=== PATIENT | female | born 1990 | race Caucasian/White ===

== ENCOUNTER 2018-05-12 12:38 | Outpatient (REF) | payer MEDICAID, SELFPAY ==
[2018-05-13 14:45] LABS: Chlamydia Result Negative; GC Result Negative; Specimen Description URINE
== END 2018-05-12 12:58 ==
LOC: LBN 12:38
PROVIDERS: PCP Nurse Practitioner Family; Visit Provider Nurse Practitioner Women's Health
DX: Z11.3 Encounter for screening for infections with a predominantly sexual mode of transmission (principal)
CPT/HCPCS: 87491; 87591

== ENCOUNTER 2018-10-31 20:58 | Emergency (ER) | payer MEDICAID, SELFPAY ==
[2018-10-31] VITALS (7 sets, daily range): BP systolic 88–111; BP diastolic 43–76; PULSE 65–84; RESP 28; TEMP 37.2; O2SAT 98–100
--- NOTE | 2018-10-31 21:39 | ED.GENADUL_ITS ---
Discharge Plan Disposition Patient Disposition: HOME Discharge Details Chief Complaint: Abd Prob Clinical Impression: Abdominal pain, right upper quadrant, Anemia, Biliary colic Primary Care Provider: Christiana Mosher ED Provider: [place] Marc Home Meds and New Rx's Prescriptions: New famotidine [Pepcid] 20 mg tablet 20 mg PO BID 42 Days Qty: 84 RF: 0 Continued Nexplanon 68 mg implant 1 implant SBD ONCE Qty: 1 RF: 0 Complete 1 EACH tablet 1 ea PO DAILY RF: 0 Fusion 1 EACH capsule 1 ea PO DAILY RF: 0 Discharge Instructions Instructions: Biliary Colic (ED), Abdominal Pain (ED), Anemia (ED) Additional Instructions: It is recommended that you have an outpatient right upper quadrant ultrasound to continue workup of abdominal pain. Please follow-up with your primary care physician. Your blood test revealed that you are anemic today. You should have additional outpatient diagnostic work-up to determine cause. Return to the ER for any worsening or new concerning symptoms. Referrals: Christiana Mosher [Primary Care Provider] - Medical Decision Making 21:35 --27-year-old female with prior remote bariatric surgery here with severe epigastric abdominal pain. Tender in her epigastric and right upper quadrant. Suspect biliary colic. Pain is improving now. Consider gastritis. Plan to treat with Pepcid IV. LR 1L bolus. Plan to obtain LFTs and lipase. -- Patient reassessed and pain resolved. -- Bedside POC RUQ abdominal ultrasound performed by me: postive gallstone and sludge, no pericholecystic fluid, CBD not visualized 11:52 -- Labs reviewed: anemia noted, decreased from 1 year ago. LFTs nl. Lipase nl. Repeat abdominal exam continues to demonstrate no tenderness or peritoneal findings. Disposition decision was made weighing the risks and benefits of hospitalization versus outpatient treatment, the risk for further decompensation, and the patient's wishes. The patient was stable and requested discharge. Prior to discharge, my usual and customary return precautions were reviewed with the patient - this included follow-up instructions and reason to return to the emergency department if condition worsens, does not improve as expected, or other new concerns arise. Plan for outpatient RUQ ultrasound. If negative for stone, consider ulcer. Plan for follow-up with PCP. [facility] General Mode of arrival: ambulatory . Date/Time Provider Initiated Documentation: 10/31/18 21:09 . Limitations to Documentation: no limitations . Information obtained by: patient . HPI Narrative: 27-year-old female presents with chief complaint of abdominal pain. Patient notes pain in her epigastric and right upper abdomen that started suddenly this evening just prior to arrival when starting to eat a hot dog. Pain has been severe at times. Pain is sharp. Pain worse with deep inspiration. Prior to onset of pain she was feeling well today. No associated nausea or vomiting. No shortness of breath. Related Data Home Medications Medication Instructions Recorded Confirmed Complete 1 ea PO DAILY 04/13/17 10/31/18 Fusion 1 ea PO DAILY 06/24/17 10/31/18 etonogestrel 68 mg subdermal 1 implant SBD ONCE #1 each 05/12/18 10/31/18 implant famotidine [Pepcid] 20 mg PO BID 42 Days #84 tab 10/31/18 Previous Rx's Medication Instructions Recorded etonogestrel 68 mg subdermal 1 implant SBD ONCE #1 each 05/12/18 implant famotidine [Pepcid] 20 mg PO BID 42 Days #84 tab 10/31/18 Allergies Allergy/AdvReac Type Severity Reaction Status Date / Time No Known Allergies Allergy Unverified 06/09/18 08:50 General Stated Complaint: Abd Prob YUSUF: 3 Review of Systems Review of Systems All systems reviewed & are unremarkable except as noted in HPI and below Cardiovascular Denies dyspnea Respiratory Denies dyspnea Gastrointestinal Reports as per HPI, Reports abdominal pain, Denies melena, Denies hematochezia, Denies nausea and Denies hematemesis PFSH Medical History Hx of bariatric surgery Hx of obesity Surgical History bariatric surgery (~2014) Family History Mother Diabetes Father Heart disease Social History Smoking/Tobacco Use Status: Never Alcohol Intake: never Drug use: Never Substance use type: does not use Do you feel safe at home: Yes Do you feel safe in your relationship?: Yes Female Reproductive History Menstrual control method: implanted (Nexplanon inserted by Micha Trujillo NP [id number] EXP=09/2020) History History 1 Para 1 Hx # Term Pregnancies Multiple births Hx # Pregnancies Ectopic pregnancies AB induced Hx Number of Living Children AB spontaneous Exam Const General: cooperative and no acute distress HENMT Head: normocephalic Mouth: moist mucous membranes Eyes Conjunctivae: normal conjunctivae Sclera: normal sclerae Neck Neck: trachea midline Resp Auscultation: clear to auscultation bilaterally, no rales, no rhonchi and no wheezes Cardio Jugular venous pressure: no JVD Rate: regular rate and not tachycardic Rhythm: regular rhythm GI Palpation: soft, not firm, no guarding, no masses, not rigid and tender in the epigastrum Auscultation: normal bowel sounds Skin General skin exam: no rashes or lesions noted Neuro General: alert, awake and tone normal Extrem General: no edema Psych Appearance: grossly normal Course Vital Signs Temperature 37.2 C 10/31/18 21:04 Pulse 84 10/31/18 21:04 Respiratory Rate 28 H 10/31/18 21:04 Blood Pressure 111/76 10/31/18 21:04 Pulse Oximetry 100 10/31/18 21:04 Temperature 37.2 C 10/31/18 21:04 Temperature Source Tympanic 10/31/18 21:04 Pulse 84 10/31/18 21:04 Respiratory Rate 28 H 10/31/18 21:04 Blood Pressure 111/76 10/31/18 21:04 Blood Pressure Position Left Lateral 10/31/18 21:04 Pulse Oximetry 100 10/31/18 21:04 Oxygen Delivery Method Room Air 10/31/18 21:04 Oxygen Flow Rate 0 10/31/18 21:04 Pain Level 8 10/31/18 21:04
[2018-10-31 22:02] LABS: Abs Immature Grans 0.01 k/cumm (0.0-0.09); Absolute Basophil Count 0.01 k/cumm (0.0-0.2); Absolute Eosinophil Count 0.09 k/cumm (0.0-0.7); Absolute Lymphocyte Count 2.13 k/cumm (1.2-3.4); Absolute Monocyte Count 0.52 k/cumm (0.11-0.7); Absolute Neutrophil Count 2.67 k/cumm (1.2-6.7); Basophils % 0.2; Eosinophils % 1.7; HCT 29.8 % (36.0-46.0); HGB 9.4 g/dL (12.0-15.5); Immature Grans % 0.2; Lymphocytes % 39.2; Mean Corp. HGB Concentration 31.5 g/dL (32.0-36.0); Mean Corpuscular Hemoglobin 23.7 pg (27.0-33.0); Mean Corpuscular Volume 75.3 fL (80-95); Mean Platelet Volume 12.3 fL (8.0-11.0); Monocytes % 9.6; Neutrophils % 49.1; Platelet Count 192 x1000/uL (130-400); RBC 3.96 m/cumm (4.00-5.20); RBC Distribution Width 15.7 % (11.7-14.6); White Blood Cell Count 5.43 k/cumm (4.4-10.8)
[2018-10-31 22:46] LABS: ALT 25 U/L (12-78); AST 35 U/L (15-37); Albumin 3.2 g/dL (3.4-5.0); Alkaline Phosphatase 24 U/L (46-116); Anion Gap 6.8 mmol/L (3-11); BUN 11 mg/dL (7-18); Bilirubin, Total 0.2 mg/dL (0.2-1.0); CO2 26.2 mmol/L (21.0-32.0); CREATININE 0.69 mg/dL (0.55-1.02); Calcium 8.6 mg/dL (8.5-10.1); Chloride 104 mmol/L (98-107); Glucose 95 mg/dL (70-100); Lipase 162 U/L (73-393); Potassium 3.6 mmol/L (3.5-5.1); Sodium 137 mmol/L (136-145); Total Protein 6.8 g/dL (6.4-8.2)
--- NOTE | 2018-11-01 00:08 | NUR.NOTE ---
Nursing Note: Pt bled through bandage from IV removal and passed out. Pt has hx of passing out when she sees her own blood. Got pt laying down pressure to IV site and cleaned up the blood. Pt is now alert and oriented sitting up again. Pt ready to go home when MD sees her.
[2018-11-01 00:28] VITALS: BP 93/43; PULSE 67; RESP 28; O2SAT 98
== END 2018-11-01 00:30 | disposition home or self-care (01) ==
PROVIDERS: Emergency Provider Student in an Organized Health Care Education/Training Program; PCP Nurse Practitioner Family
DX: R10.11 Right upper quadrant pain (principal); R10.13 Epigastric pain; K80.20 Calculus of gallbladder without cholecystitis without obstruction; D50.9 Iron deficiency anemia, unspecified; Z98.84 Bariatric surgery status
CPT/HCPCS: 36415; 80053; 83690; 99283; 85025

== ENCOUNTER 2018-11-04 01:33 | Outpatient (CLI) | payer MEDICAID, SELFPAY ==
--- NOTE | 2018-11-04 09:24 | DI.US_ITS ---
SYMPTOM/DIAGNOSIS: RUQ ABD PAIN ABDOMEN ULTRASOUND: The aorta is unremarkable. The vena cava is intact. The liver is enlarged with a maximum diameter of 17 cm. There are a number of small regions of reflectivity on the dependent gallbladder wall consistent with a number of very small gallstones. There is no evidence of ductal dilatation. The pancreas is normal. The spleen is somewhat enlarged with a maximum diameter of 11.9 cm. The kidneys are unremarkable. There is no evidence of free fluid. SUMMARY: No evidence of cholecystitis. Cholelithiasis is demonstrated.
== END 2018-11-04 01:53 ==
PROVIDERS: PCP Nurse Practitioner Family; Visit Provider Student in an Organized Health Care Education/Training Program
DX: R10.11 Right upper quadrant pain (principal); K80.20 Calculus of gallbladder without cholecystitis without obstruction; R16.0 Hepatomegaly, not elsewhere classified
CPT/HCPCS: 76700

== ENCOUNTER 2018-11-04 09:29 | Emergency (ER) | payer MEDICAID, SELFPAY ==
[2018-11-04 09:33] VITALS: BP 122/74; PULSE 68; RESP 12; TEMP 36.6; O2SAT 100
--- NOTE | 2018-11-04 09:55 | W.ED.GENAD ---
Discharge Plan Disposition Patient Disposition: HOME Condition: Fair Discharge Details Chief Complaint: Recheck Clinical Impression: Cholelithiasis Primary Care Provider: Christiana Mosher ED Provider: Ara Cruz Home Meds and New Rx's Prescriptions: Continued Nexplanon 68 mg implant 1 implant SBD ONCE Qty: 1 RF: 0 Complete 1 EACH tablet 1 ea PO DAILY RF: 0 Fusion 1 EACH capsule 1 ea PO DAILY RF: 0 famotidine [Pepcid] 20 mg tablet 20 mg PO BID 42 Days Qty: 84 RF: 0 Discharge Instructions Instructions: Gallstones (ED) Additional Instructions: Encourage hydration. Tylenol and ibuprofen as needed for discomfort. Please avoid fatty foods. If you develop fever/chills, increased pain, constant pain, inability stay hydrated or the new/worsening symptoms please seek care urgently once again. Ultrasound showed gallstones. You will need follow-up with general surgery, home care chaplain will contact you to discuss follow-up appointment. Referrals: Christiana Mosher [Primary Care Provider] - Discharge Data Discharge Date/Time-TO BE ENTERED AT DEPARTURE: 11/04/18 10:17 Medical Decision Making Patient is a 27-year-old female presenting today for follow-up of ultrasound. Discussed findings with the radiologist who advised cholelithiasis with no evidence of acute cholecystitis. Discussed with the patient. She is currently asymptomatic, drinking coffee. She appears nontoxic. Some mild discomfort in right upper quadrant with palpation but negative Dotson sign. Advised him to follow-up with general surgery. She was given strict return precautions. Have asked her home care chaplain help facilitate follow-up appointment. All of her questions and concerns were addressed and she is agreement with plan. Discussed that she should avoid fatty foods. HPI General Mode of arrival: ambulatory. Date/Time Provider Initiated Documentation: 11/04/18 09:31. Limitations to Documentation: no limitations. Information obtained by: patient and RN notes reviewed. HPI Narrative: Patient presents for recheck after outpatient US. Patient had RUQ US with concern for cholelithiasis. She reports one short episode of pain after eating hotdog after her evaluation a few days ago. That episode lasted 20 mins and spontaneously resolved. No pain now. No change in appetite. No fevers/chills. Surgical hx significant for bariatric surgery and . Related Data Home Medications Medication Instructions Recorded Confirmed Complete 1 ea PO DAILY 04/13/17 11/04/18 Fusion 1 ea PO DAILY 06/24/17 11/04/18 etonogestrel 68 mg subdermal 1 implant SBD ONCE #1 each 05/12/18 11/04/18 implant famotidine [Pepcid] 20 mg PO BID 42 Days #84 tab 10/31/18 11/04/18 Previous Rx's Medication Instructions Recorded etonogestrel 68 mg subdermal 1 implant SBD ONCE #1 each 05/12/18 implant famotidine [Pepcid] 20 mg PO BID 42 Days #84 tab 10/31/18 Allergies Allergy/AdvReac Type Severity Reaction Status Date / Time No Known Allergies Allergy Unverified 11/04/18 09:35 General Stated Complaint: Recheck YUSUF: 4 Review of Systems Constitutional Reports as per HPI, Denies chills, Denies fatigue, Denies fever(s) and Denies headache(s) ENT Denies headache(s) Cardiovascular Reports as per HPI, Denies chest pain and Denies dyspnea Respiratory Reports as per HPI, Denies cough and Denies dyspnea Gastrointestinal Reports as per HPI and Denies change in stool character Genitourinary Reports system reviewed and no additional complaints, except as docu (no changein urinary habits) Musculoskeletal Reports as per HPI and Denies back pain Integumentary/Breasts Reports as per HPI and Denies rash Neurologic Reports as per HPI and Denies headache(s) Endocrine Denies fatigue PFSH Medical History Hx of bariatric surgery Hx of obesity Surgical History bariatric surgery (~2014) Social History Smoking/Tobacco Use Status: Never Alcohol Intake: never Drug use: Never Substance use type: does not use Do you feel safe at home: Yes Do you feel safe in your relationship?: Yes Female Reproductive History Menstrual control method: implanted (Nexplanon inserted by Micha Trujillo NP QQG=[id number] EXP=09/2020) History History 1 Para 1 Hx # Term Pregnancies Multiple births Hx # Pregnancies Ectopic pregnancies AB induced Hx Number of Living Children AB spontaneous Exam Const General: cooperative, healthy appearing, comfortable, no acute distress and well developed Nutritional Appearance: average body habitus and well nourished Orientation: alert and awake HENVA Head: normal to inspection Mouth: moist mucous membranes Resp Effort & Inspection: normal respiratory effort, able to speak in complete sentences and no respiratory distress Auscultation: clear to auscultation bilaterally, no rales, no rhonchi and no wheezes Cardio Rate: regular rate Rhythm: regular rhythm Heart Sounds: S1 normal and S2 normal GI Inspection: normal to inspection, no edema, non-distended, no large pannus, no visible herniation and no visible pulsation Palpation: soft, no hepatosplenomegaly, not firm, no guarding and tender in the RUQ; Dotson's sign negative Percussion: normal to percussion Auscultation: normal bowel sounds Back/Spine/Pelvis Back: no CVA tenderness Skin General skin exam: no rashes or lesions noted Trauma: no lacerations or abrasions Neuro General: alert and awake Cognition: normal cognition Speech: speech normal Gait: normal gait Psych Appearance: grossly normal and well kempt Mental Status: mental status grossly normal Speech and Movement: speech and movement normal Course Vital Signs Temperature 36.6 C 11/04/18 09:33 Pulse 68 11/04/18 09:33 Respiratory Rate 12 11/04/18 09:33 Blood Pressure 122/74 11/04/18 09:33 Pulse Oximetry 100 11/04/18 09:33 Temperature 36.6 C 11/04/18 09:33 Temperature Source Temporal Artery Scan 11/04/18 09:33 Pulse 68 11/04/18 09:33 Respiratory Rate 12 11/04/18 09:33 Respiratory Effort Non-Labored 11/04/18 09:35 Blood Pressure 122/74 11/04/18 09:33 Pulse Oximetry 100 11/04/18 09:33 Oxygen Delivery Method Room Air 11/04/18 09:33 Oxygen Flow Rate 0 11/04/18 09:33 Pain Level 0 11/04/18 09:33
--- NOTE | 2018-11-04 10:12 | ED.GENADUL_ITS ---
Discharge Plan Disposition Patient Disposition: HOME Condition: Fair Discharge Details Chief Complaint: Recheck Clinical Impression: Cholelithiasis Primary Care Provider: Christiana Mosher ED Provider: Ara Cruz Home Meds and New Rx's Prescriptions: Continued Nexplanon 68 mg implant 1 implant SBD ONCE Qty: 1 RF: 0 Complete 1 EACH tablet 1 ea PO DAILY RF: 0 Fusion 1 EACH capsule 1 ea PO DAILY RF: 0 famotidine [Pepcid] 20 mg tablet 20 mg PO BID 42 Days Qty: 84 RF: 0 Discharge Instructions Instructions: Gallstones (ED) Additional Instructions: Encourage hydration. Tylenol and ibuprofen as needed for discomfort. Please avoid fatty foods. If you develop fever/chills, increased pain, constant pain, inability stay hydrated or the new/worsening symptoms please seek care urgently once again. Ultrasound showed gallstones. You will need follow-up with general surgery, resident care aid will contact you to discuss follow-up appointment. Referrals: Christiana Mosher [Primary Care Provider] - Discharge Data Discharge Date/Time-TO BE ENTERED AT DEPARTURE: 11/04/18 10:17 Medical Decision Making Patient is a 27-year-old female presenting today for follow-up of ultrasound. Discussed findings with the radiologist who advised cholelithiasis with no evidence of acute cholecystitis. Discussed with the patient. She is currently asymptomatic, drinking coffee. She appears nontoxic. Some mild discomfort in right upper quadrant with palpation but negative Dotson sign. Advised him to follow-up with general surgery. She was given strict return precautions. Have asked her resident care aid help facilitate follow-up appointment. All of her questions and concerns were addressed and she is agreement with plan. Discussed that she should avoid fatty foods. HPI General Mode of arrival: ambulatory . Date/Time Provider Initiated Documentation: 11/04/18 09:31 . Limitations to Documentation: no limitations . Information obtained by: patient and RN notes reviewed . HPI Narrative: Patient presents for recheck after outpatient US. Patient had RUQ US with concern for cholelithiasis. She reports one short episode of pain after eating hotdog after her evaluation a few days ago. That episode lasted 20 mins and spontaneously resolved. No pain now. No change in appetite. No fevers/chills. Surgical hx significant for bariatric surgery and . Related Data Home Medications Medication Instructions Recorded Confirmed Complete 1 ea PO DAILY 04/13/17 11/04/18 Fusion 1 ea PO DAILY 06/24/17 11/04/18 etonogestrel 68 mg subdermal 1 implant SBD ONCE #1 each 05/12/18 11/04/18 implant famotidine [Pepcid] 20 mg PO BID 42 Days #84 tab 10/31/18 11/04/18 Previous Rx's Medication Instructions Recorded etonogestrel 68 mg subdermal 1 implant SBD ONCE #1 each 05/12/18 implant famotidine [Pepcid] 20 mg PO BID 42 Days #84 tab 10/31/18 Allergies Allergy/AdvReac Type Severity Reaction Status Date / Time No Known Allergies Allergy Unverified 11/04/18 09:35 General Stated Complaint: Recheck YUSUF: 4 Review of Systems Constitutional Reports as per HPI, Denies chills, Denies fatigue, Denies fever(s) and Denies he adache(s) ENT Denies headache(s) Cardiovascular Reports as per HPI, Denies chest pain and Denies dyspnea Respiratory Reports as per HPI, Denies cough and Denies dyspnea Gastrointestinal Reports as per HPI and Denies change in stool character Genitourinary Reports system reviewed and no additional complaints, except as docu (no changein urinary habits) Musculoskeletal Reports as per HPI and Denies back pain Integumentary/Breasts Reports as per HPI and Denies rash Neurologic Reports as per HPI and Denies headache(s) Endocrine Denies fatigue PFSH Medical History Hx of bariatric surgery Hx of obesity Surgical History bariatric surgery (~2014) Social History Smoking/Tobacco Use Status: Never Alcohol Intake: never Drug use: Never Substance use type: does not use Do you feel safe at home: Yes Do you feel safe in your relationship?: Yes Female Reproductive History Menstrual control method: implanted (Nexplanon inserted by Micha Trujillo NP HUN=[id number] EXP=09/2020) History History 1 Para 1 Hx # Term Pregnancies Multiple births Hx # Pregnancies Ectopic pregnancies AB induced Hx Number of Living Children AB spontaneous Exam Const General: cooperative, healthy appearing, comfortable, no acute distress and well developed Nutritional Appearance: average body habitus and well nourished Orientation: alert and awake HENAZ Head: normal to inspection Mouth: moist mucous membranes Resp Effort & Inspection: normal respiratory effort, able to speak in complete sentences and no respiratory distress Auscultation: clear to auscultation bilaterally, no rales, no rhonchi and no wheezes Cardio Rate: regular rate Rhythm: regular rhythm Heart Sounds: S1 normal and S2 normal GI Inspection: normal to inspection, no edema, non-distended, no large pannus, no visible herniation and no visible pulsation Palpation: soft, no hepatosplenomegaly, not firm, no guarding and tender in the RUQ; Dotson's sign negative Percussion: normal to percussion Auscultation: normal bowel sounds Back/Spine/Pelvis Back: no CVA tenderness Skin General skin exam: no rashes or lesions noted Trauma: no lacerations or abrasions Neuro General: alert and awake Cognition: normal cognition Speech: speech normal Gait: normal gait Psych Appearance: grossly normal and well kempt Mental Status: mental status grossly normal Speech and Movement: speech and movement normal Course Vital Signs Temperature 36.6 C 11/04/18 09:33 Pulse 68 11/04/18 09:33 Respiratory Rate 12 11/04/18 09:33 Blood Pressure 122/74 11/04/18 09:33 Pulse Oximetry 100 11/04/18 09:33 Temperature 36.6 C 11/04/18 09:33 Temperature Source Temporal Artery Scan 11/04/18 09:33 Pulse 68 11/04/18 09:33 Respiratory Rate 12 11/04/18 09:33 Respiratory Effort Non-Labored 11/04/18 09:35 Blood Pressure 122/74 11/04/18 09:33 Pulse Oximetry 100 11/04/18 09:33 Oxygen Delivery Method Room Air 11/04/18 09:33 Oxygen Flow Rate 0 11/04/18 09:33 Pain Level 0 11/04/18 09:33
[2018-11-04 10:17] VITALS: BP 122/74; PULSE 68; RESP 12; TEMP 36.6; O2SAT 100
--- NOTE | 2018-11-04 10:53 | PDOC.ERCMPRO ---
Care Management Progress Note 11/04-Ara SEGOVIA requested assistance with a general surgery f/u for cholelithiasis. Referral faxed to [facility]. [facility], patient has appt 11/08 w/Dr. Salazar.
--- NOTE | 2018-11-04 10:59 | CMPROGNOTE_ITS ---
Care Management Progress Note 11/04-Ara SEGOVIA requested assistance with a general surgery f/u for cholelithiasis. Referral faxed to [facility]. [facility] faxed back, patient has appt 11/08 w/Dr. Salazar.
== END 2018-11-04 10:17 | disposition home or self-care (01) ==
PROVIDERS: Emergency Provider Physician Assistant; PCP Nurse Practitioner Family
DX: K80.20 Calculus of gallbladder without cholecystitis without obstruction (principal)
CPT/HCPCS: 99281

== ENCOUNTER 2019-04-26 15:09 | Outpatient (REF) | payer MEDICAID, SELFPAY | END 2019-04-26 15:29 | LOC: NCHCO 15:09 | PROVIDERS: PCP Nurse Practitioner Family; Visit Provider Nurse Practitioner Family | DX: F41.8 Other specified anxiety disorders (principal) | CPT/HCPCS: 84443 ==

== ENCOUNTER 2019-11-21 13:19 | Outpatient (REF) | payer MEDICAID, SELFPAY ==
[2019-11-21 22:27] LABS: Abs Immature Grans 0.05 k/cumm (0.0-0.09); Absolute Basophil Count 0.01 k/cumm (0.0-0.2); Absolute Eosinophil Count 0.12 k/cumm (0.0-0.7); Absolute Monocyte Count 0.79 k/cumm (0.11-0.7); Absolute Neutrophil Count 5.36 k/cumm (1.2-6.7); Basophils % 0.1; Eosinophils % 1.5; HCT 37.4 % (36.0-46.0); HGB 12.1 g/dL (12.0-15.5); Immature Grans % 0.6 %; Lymphocytes % 21.2; Mean Corp. HGB Concentration 32.4 g/dL (32.0-36.0); Mean Corpuscular Hemoglobin 28.7 pg (27.0-33.0); Mean Corpuscular Volume 88.8 fL (80-95); Mean Platelet Volume 11.7 fL (8.0-11.0); Monocytes % 9.8; Neutrophils % 66.8; Platelet Count 262 x1000/uL (130-400); RBC 4.21 m/cumm (4.00-5.20); White Blood Cell Count 8.03 k/cumm (4.4-10.8)
[2019-11-21 23:00] LABS: Anion Gap 9.4 mmol/L (3-11); BUN 8 mg/dL (7-18); CO2 26.6 mmol/L (21.0-32.0); CREATININE 0.81 mg/dL (0.55-1.02); Calcium 8.3 mg/dL (8.5-10.1); Chloride 103 mmol/L (98-107); Glucose 91 mg/dL (74-106); Potassium 3.3 mmol/L (3.5-5.1); Sodium 139 mmol/L (136-145)
== END 2019-11-21 13:39 ==
LOC: NCHCN 13:19
PROVIDERS: PCP Nurse Practitioner Family
DX: R53.83 Other fatigue (principal)
CPT/HCPCS: 80048; 85025

== ENCOUNTER 2019-12-16 07:44 | Outpatient (CLI) | payer MEDICAID, SELFPAY ==
[2019-12-21 19:18] LABS: SARS-CoV-2 RNA Undetected (Undetected)
== END 2019-12-16 08:04 ==
PROVIDERS: PCP Nurse Practitioner Family; Visit Provider Nurse Practitioner Family
DX: Z11.59 Encounter for screening for other viral diseases (principal)
CPT/HCPCS: U0003

== ENCOUNTER 2020-02-27 10:43 | Outpatient (REF) | payer MEDICAID, SELFPAY ==
[2020-02-27 20:46] LABS: HCT 42.3 % (36.0-46.0); HGB 13.9 g/dL (11.2-15.7); MCH 28.6 pg (27.0-33.0); MCHC 32.9 % (32.0-36.0); MPV 11.7 fL (8.0-11.0); Platelet Count 163 10^3/uL (130-400); RBC 4.86 10^6/uL (3.93-5.22); RDW 13.3 % (11.7-14.6); RDW-SD 42.2 fL
[2020-02-27 20:59] LABS: Iron 106 ug/dL (50-170); Total Iron Binding Capacity 294 ug/dL (250-450); Transferrin Sat 36 % (15-50)
[2020-02-27 21:22] LABS: Hemoglobin A1C 4.9 % (<5.7)
[2020-02-27 22:23] LABS: ALT 21 U/L (14-59); AST 14 U/L (15-37); Albumin 4.1 g/dL (3.4-5.0); Alkaline Phosphatase 23 U/L (46-116); BUN 10 mg/dL (7-18); Bilirubin, Total 0.5 mg/dL (0.2-1.0); CREATININE 0.81 mg/dL (0.55-1.02); Chloride 104 mmol/L (98-107); Ferritin 112 ng/mL (8-252); Glucose 93 mg/dL (74-106); Potassium 4.2 mmol/L (3.5-5.1); Sodium 138 mmol/L (136-145); TSH 0.95 uIU/mL (0.36-3.74); Total Protein 7.6 g/dL (6.4-8.2); Vitamin B12 327 pg/mL (193-986)
[2020-02-27 23:35] LABS: FREE T4 1.04 ng/dL (0.76-1.46)
== END 2020-02-27 11:03 ==
LOC: NCHCN 10:43
PROVIDERS: PCP Nurse Practitioner Family; Visit Provider Internal Medicine
DX: R53.83 Other fatigue (principal); R41.3 Other amnesia; Z13.1 Encounter for screening for diabetes mellitus
CPT/HCPCS: 80053; 85027; 82607; 82728; 83036; 83540; 83550; 84439; 84443

== ENCOUNTER 2021-01-18 07:36 | Emergency (ER) | payer MEDICAID, SELFPAY ==
[2021-01-18 07:39] VITALS: BP 115/66; PULSE 77; RESP 14; TEMP 36.7; O2SAT 99
--- NOTE | 2021-01-18 07:52 | DI.RAD_ITS ---
Exam(s) XR HAND RT COMPLETE EXAM: XR HAND RT COMPLETE CLINICAL HISTORY: shut in coor door, pain/bruising. TECHNIQUE: 2D digital imaging was performed. COMPARISON: No exams were available for comparison FINDINGS: BONES: There is an acute nondisplaced fracture of the lateral aspect of the terminal tuft of the righ t 4th finger. There is a lucency seen through the lateral aspect of the terminal tuft of the middle finger which may represent overlying shadow versus a non displaced fracture clinical correlation is r ecommended. No bony destructive lesion is seen. JOINTS: No dislocation present. SOFT TISSUE: Normal. IMPRESSION: 1. Nondisplaced fracture of the lateral aspect of the terminal tuft of the right ring finger. 2. Nondisplaced fracture versus artifact involving the terminal tuft of the distal phalanx of the rig ht middle finger. 3. Results of this exam have been verbally communicated with provider. DATA REPOSITORY: RADIATION DOSE DELIVERED:
[2021-01-18] MEDS: Cephalexin 500 MG CAP PO (08:20)
--- NOTE | 2021-01-18 08:22 | W.ED.GENAD ---
Discharge Plan Disposition Patient Disposition: HOME Condition: Good Discharge Details Clinical Impression: Fracture of phalanx of right ring finger, Closed fracture of phalanx of right middle finger Primary Care Provider: Christiana Mosher ED Provider: William Leone Home Meds and New Rx's Prescriptions: New cephalexin 500 mg capsule 500 mg PO QID 7 Days Qty: 28 RF: 0 Continued Nexplanon 68 mg implant 1 implant SBD ONCE Qty: 1 RF: 0 Complete 1 EACH tablet 1 ea PO DAILY RF: 0 Fusion 1 EACH capsule 1 ea PO DAILY RF: 0 Discharge Instructions Instructions: Finger Fracture (ED) Additional Instructions: At this time you have a few small fractures of your fingers. Unfortunately because one of the fractures is at the tip of the finger where the subungual hematoma is there is concern for potential future infection. To prevent this please take the antibiotic as directed. The antibiotic has been sent [facility] your [facility] on [facility]. Please leave the splint on for the next 1 to 2 weeks, and then gradually begin to move the fingers to make sure there is improvement or resolution of your pain. If you do still have pain please maintain splint use. If you have continued to have numbness and tingling after a week please follow-up with your PCP or patient accounts specialist for reassessment. You can take 1000 mg of Tylenol every 6 hours and 800 mg of ibuprofen every 6 hours for pain. These are the maximum doses. Please use ice frequently. Please also take a multivitamin and a calcium supplement as you heal. If you notice any worsening of your symptoms, or any new symptoms such as vomiting, diarrhea, fever, chills, shortness of breath, chest pain, numbness, weakness, or fainting , please return immediately to the emergency department for reevaluation. Please follow up with your primary care provider as soon as possible for reassessment and reevaluation. As always, it was a pleasure participating in your medical care today. Referrals: Christiana Mosher [Primary Care Provider] - Discharge Data Discharge Date/Time-TO BE ENTERED AT DEPARTURE: 01/18/21 08:34 Medical Decision Making 30-year-old female who is right-hand dominant presents today for evaluation of right middle and ring finger pain. Just prior to arrival the patient caught her fingers in the door when closing the door. She applied ice, and then came to the ER for further assessment. Pain is present in the tip of the third and fourth finger trauma as well as the proximal component of the phalanges of the third and fourth finger. Pain is worse with movement. Improved with ice. No other complaints at this time. No other modifying factors. Physical exam demonstrates tenderness at the proximal phalanxes of the third and fourth digit as well as the tips of the third and fourth digit, strength intact, sensation intact but slightly reduced at the tips. Good capillary refill. No rotational deformity. Patient able to flex and extend well otherwise. Small subungual hematoma, but patient states that the pain is mild to minimal in that area and certainly not throbbing. No indication for trephination of the nail at this time. X-ray shows evidence of small fractures at the DIP tips, as well as in the proximal phalanx. Will splint the fingers, recommend Tylenol and Motrin for pain as well as ice. We will give a prescription for Keflex for potential infection with the evidence of small distal tip fracture and subungual hematoma. Discussed red flags which to return. I have extensively reviewed the treatment plan and discharge instructions with the patient and their family. I have addressed all patient concerns at this time. The patient and family was made aware of what symptoms to monitor for that would warrant a return to the emergency department. Discussed the plan with the patient and family, they demonstrate verbal understanding and agreement with our assessment and plan at this time. The documentation in this chart was dictated using [employer] dictation software. Please excuse any dictation errors. IMPRESSION: 1. Nondisplaced fracture of the lateral aspect of the terminal tuft of the right ring finger. 2. Nondisplaced fracture versus artifact involving the terminal tuft of the distal phalanx of the right middle finger. 3. Results of this exam have been verbally communicated with provider. HPI General Date/Time Provider Initiated Documentation: 01/18/21 07:55. HPI Narrative: 30-year-old female who is right-hand dominant presents today for evaluation of right middle and ring finger pain. Just prior to arrival the patient caught her fingers in the door when closing the door. She applied ice, and then came to the ER for further assessment. Pain is present in the tip of the third and fourth finger trauma as well as the proximal component of the phalanges of the third and fourth finger. Pain is worse with movement. Improved with ice. No other complaints at this time. No other modifying factors. Related Data Home Medications Medication Instructions Recorded Confirmed Complete 1 ea PO DAILY 04/13/17 01/18/21 Fusion 1 ea PO DAILY 06/24/17 01/18/21 etonogestrel 68 mg subdermal 1 implant SBD ONCE #1 each 05/12/18 01/18/21 implant cephalexin 500 mg PO QID 7 Days #28 cap 01/18/21 Previous Rx's Medication Instructions Recorded etonogestrel 68 mg subdermal 1 implant SBD ONCE #1 each 05/12/18 implant cephalexin 500 mg PO QID 7 Days #28 cap 01/18/21 Allergies Allergy/AdvReac Type Severity Reaction Status Date / Time No Known Allergies Allergy Unverified 06/09/19 10:29 General Stated Complaint: Orthopedic YUSUF: 4 Review of Systems All systems reviewed & are unremarkable except as noted in HPI and below PFSH Medical History History of delivery SROM with at 30 weeks EGA. complicated by first trimester bleeding x2. Infant without sequela. Hx of bariatric surgery 06/2017 Prealbumin, Vit D low iron saturation low. Nl TIBC, nl ferritin. Hx of obesity 2015 BMI 45 kg/m2. 302lbs 04/2017 BMI 26.6kg/m2. 173lbs. s/p bariatric surgery [facility] [place] Nexplanon in place Placed 05/2018. Surgical History bariatric surgery (~2014) [facility] [place]. Lin en Y gastric bypass. Family History Mother Diabetes Father Heart disease Social History Smoking/Tobacco Use Status: Never Smoking risk assessment performed?: Yes Alcohol Intake: never Drug use: Never Substance use type: does not use Household members: significant other and other Details: Tory. 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 3.ENT: Atraumatic external nose and ears. Moist MM. Neck: Symmetric, trachea midline, No thyromegaly. 4.CVS: +S1/S2, No murmurs or gallops. Peripheral pulses 2+ and equal in all extremities. Brisk capillary refill in all extremities. 5.RESP: Unlabored respiratory effort. Clear to auscultation bilaterally. No wheezes rales or rhonchi 6.GI: Soft, Nontender/Nondistended, No hepatosplenomegaly. No guarding or rebound. 7.MSK: Right hand: symmetrically palpable radial and ulnar pulses. Capillary refill less than 2 seconds to all digits. Intact sensation to light touch of the radial, median and ulnar nerves demonstrated by testing in the dorsal web space of the thumb, the distal palmar aspect of the index finger, and the lateral surface of the fifth finger. 2 point discrimination i somewhat limited in the distal tips of the third and fourth digit, I would describe the two-point discrimination being present up to 6 mm, but not closer in the third and fourth digit. Intact motor function of the radial, median and ulnar nerves demonstrated by strength of extension of the isolated distal joint of the index finger, hand tile ditcher, and spreading of the 2nd through 5th digits however there is notable pain in the third and fourth digit with these movements. Flexion of the third and fourth digit demonstrates no rotational abnormality. In isolation of each joint continues to demonstrate good flexion capability although there is some pain for sure. Intact recurrent median nerve as demonstrated by ability to move thumb fully through opposition, abduction and flexion. No snuffbox tenderness. There is also evidence of a small subungual hematoma at the base of the middle finger nail. 8.Skin: Warm, Dry. No rashes or lesions. 9.Neuro: oracle adf developer II-XII grossly intact. Sensation grossly intact, no focal neurologic deficits. 10.Psych: (AAO) x3. Appropriate mood and affect Course Vital Signs Vital signs: Vital Signs Temperature 36.7 C 01/18/21 07:39 Pulse 77 01/18/21 07:39 Respiratory Rate 14 01/18/21 07:39 Blood Pressure 115/66 01/18/21 07:39 Pulse Oximetry 99 01/18/21 07:39 Temperature 36.7 C 01/18/21 07:39 Temperature Source Skin 01/18/21 07:39 Pulse 77 01/18/21 07:39 Respiratory Rate 14 01/18/21 07:39 Respiratory Effort Non-Labored 01/18/21 07:43 Blood Pressure 115/66 01/18/21 07:39 Blood Pressure Position Sitting 01/18/21 07:39 Pulse Oximetry 99 01/18/21 07:39 Oxygen Delivery Method Room Air 01/18/21 07:39 Oxygen Flow Rate 0 01/18/21 07:39
== END 2021-01-18 08:34 | disposition home or self-care (01) ==
PROVIDERS: Emergency Provider Student in an Organized Health Care Education/Training Program; PCP Nurse Practitioner Family
DX: S67.21XA Crushing injury of right hand, initial encounter (principal); S62.632A Displaced fracture of distal phalanx of right middle finger, initial encounter for closed fracture; S62.634A Displaced fracture of distal phalanx of right ring finger, initial encounter for closed fracture; W23.1XXA Caught, crushed, jammed, or pinched between stationary objects, initial encounter
CPT/HCPCS: 26750; 73130

== ENCOUNTER 2021-02-04 11:58 | Outpatient (REF) | payer MEDICAID, SELFPAY ==
[2021-02-05 17:56] LABS: COVID-19 RT-PCR UVMMC Result Negative (Negative)
== END 2021-02-04 11:59 | disposition home or self-care (01) ==
LOC: NCHCN 11:58
PROVIDERS: PCP Nurse Practitioner Family; Visit Provider Nurse Practitioner Family
DX: R05 Cough (principal); Z20.822 Contact with and (suspected) exposure to COVID-19
CPT/HCPCS: U0003

== ENCOUNTER 2021-06-29 12:56 | Emergency (ER) | payer MEDICAID, SELFPAY ==
[2021-06-29 13:03] VITALS: BP 124/78; PULSE 72; RESP 18; TEMP 36.5; O2SAT 98
--- NOTE | 2021-06-29 13:30 | DI.CT_ITS ---
Exam(s) CT HEAD CERVICAL SPINE WO EXAM: CT HEAD CERVICAL SPINE WO CLINICAL HISTORY: headache after fall, neck pain. TECHNIQUE: Imaging Protocol: Axial computed tomography images with coronal and sagittal reformatted images were created and reviewed COMPARISON: CT HEAD WITHOUT CONTRAST from 02/09/2017 FINDINGS: CT Head: Ventricles and Extra axial spaces: Normal in size and morphology for the patient's age. Hemorrhage: None. Cerebral parenchyma: Normal. Midline shift: None. Brainstem/Cerebellum: Normal. Calvarium: Normal. Visualized Paranasal sinuses/Mastoids: Clear. Soft Tissues: Unremarkable. CT Cervical Spine: Bones: No acute fracture or subluxation. There is straightening of the normal cervical lordosis which may be due to muscle spasm or patient positioning. Soft Tissues: Unremarkable. Lung Apices: Clear. IMPRESSION: 1. No acute intracranial process. 2. No acute fracture or subluxation in the cervical spine. RADIATION DOSE DELIVERED: 1,196.03mGy.cm Total DLP DATA REPOSITORY: All CT scans at this facility are submitted to the National Radiology Data Registry (NRDR) Dose Index Registry (DIR) with the [employer] (ACR). RADIATION OPTIMIZATION: All CT scans at this facility use at least one of these dose optimization te chniques: automated exposure control; mA and/or kV adjustment per patient size (includes targeted exa ms where dose is matched to clinical indication); or iterative reconstruction.
--- NOTE | 2021-06-29 13:42 | W.ED.GENAD ---
Discharge Plan Disposition Patient Disposition: HOME Condition: Stable Discharge Details Clinical Impression: Concussion Primary Care Provider: Christiana Mosher ED Provider: Pippa Lemus Home Meds and New Rx's Prescriptions: Continued Nexplanon 68 mg implant 1 implant SBD ONCE Qty: 1 RF: 0 Complete 1 EACH tablet 1 ea PO DAILY RF: 0 Fusion 1 EACH capsule 1 ea PO DAILY RF: 0 multivitamin Tablet 1 tab PO DAILY RF: 0 ferrous gluconate 225 mg (27 mg iron) tablet 225 mg PO DAILY RF: 0 bupropion HCl 100 mg tablet 100 mg PO TID RF: 0 Discharge Instructions Instructions: Concussion (ED) Additional Instructions: Take ibuprofen and Tylenol as needed for pain Keep yourself hydrated While you have lightheadedness headache, is recommended that you do not operate any heavy machinery including your vehicle Your symptoms may last anywhere from 1 weeks to a month, sometimes they can last longer, recommend repeat assessment with your primary care physician in 1 week Limit your television and phone use Please return earlier should you have any new or worsening complaints including worsening headache Referrals: Christiana Mosher [Primary Care Provider] - Discharge Data Discharge Date/Time-TO BE ENTERED AT DEPARTURE: 06/29/21 15:05 Medical Decision Making Patient appears well Ambulatory steady gait, CT cervical spine and brain does not show acute abnormality Suspect patient has a concussion, we discussed symptom and likely a course presentation We will take ibuprofen and Tylenol, limit electronic activities and any activities operating heavy machinery including her vehicle will be discontinued until her symptoms have resolved Return precautions discussed and patient expressed understanding Discharge home ambulatory with steady gait intact neurological exam Medical Records Medical records reviewed: Yes I reviewed the patient's medical records. HPI General Mode of arrival: ambulatory. Date/Time Provider Initiated Documentation: 06/29/21 13:18. Limitations to Documentation: no limitations. Information obtained by: patient. HPI Narrative: This 30-year-old female who is otherwise reportedly healthy presents with report of headache status post fall approximately 3 feet from a desktop support technician yesterday. Fell onto cement, denies no loss of consciousness. Woke up with notable headache morning which is why he presents today. Mildly nauseous, mildly lightheaded. Denies prior history of recent head injury. Denies any numbness or tingling. Was ambulatory today without issue. Denies history of coagulopathy. Denies any chance of . Related Data Home Medications Medication Instructions Recorded Confirmed Complete 1 ea PO DAILY 04/13/17 06/29/21 Fusion 1 ea PO DAILY 06/24/17 06/29/21 etonogestrel 68 mg subdermal 1 implant SBD ONCE #1 each 05/12/18 06/29/21 implant bupropion HCl 100 mg tablet 100 mg PO TID 04/01/21 06/29/21 ferrous gluconate 225 mg (27 mg 225 mg PO DAILY 04/01/21 06/29/21 iron) tablet multivitamin 1 tab PO DAILY 04/01/21 06/29/21 Previous Rx's Medication Instructions Recorded etonogestrel 68 mg subdermal 1 implant SBD ONCE #1 each 05/12/18 implant Allergies Allergy/AdvReac Type Severity Reaction Status Date / Time No Known Allergies Allergy Unverified 06/29/21 13:10 General Stated Complaint: HeadInjury YUSUF: 2 Review of Systems All systems reviewed & are unremarkable except as noted in HPI and below PFSH All Active Problems (Updated 04/01/21 @ 15:30 by Christina FLEMING) Concussion (Acute) High frequency sensorineural hearing loss of left ear (Acute) Osteoporosis screening (Acute) Obesity (Chronic) Strain of thoracic back region (Acute) Dysfunctional uterine bleeding (Acute) Anxiety and depression (Chronic) Fatigue (Acute) History of anemia (Acute) Cough (Acute) Decreased hearing of both ears (Acute) Fracture of phalanx of right ring finger (Acute) Closed fracture of phalanx of right middle finger (Acute) Nexplanon in place (Acute) Placed 05/2018. History of delivery (Acute) SROM with at 30 weeks EGA. complicated by first trimester bleeding x2. without sequela. Hx of bariatric surgery (Acute 06/22/17) 2015 BMI 45kg/m2. 306lbs. 04/2017 BMI 26.6kg/m2. 173lbs. 06/2017 Low Vit D, pre-albumin. Nl TIBC, nl ferritin. Medical History (Updated 06/29/21 @ 14:53 by LUCA Castle) Attention deficit disorder (ADD) in adult Hx of bariatric surgery 06/2017 Prealbumin, Vit D low iron saturation low. Nl TIBC, nl ferritin. Hx of obesity 2015 BMI 45 kg/m2. 302lbs 04/2017 BMI 26.6kg/m2. 173lbs. s/p bariatric surgery [facility] [place] Surgical History (Updated 04/01/21 @ 15:30 by Christina FLEMING) bariatric surgery (~2014) [facility] [place]. Lin en Y gastric bypass. Family History Mother Diabetes Father Heart disease Social History Smoking/Tobacco Use Status: Never Smoking risk assessment performed?: Yes Alcohol Intake: never Drug use: Never Substance use type: does not use Household members: significant other and other Details: ELVIN-Devendra. Julienne Durant. 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 Do you feel safe at home: Yes Do you feel safe in your relationship?: Yes Female Reproductive History Menstrual control method: implanted History History 1 Para 1 Hx # Term Pregnancies Multiple births Hx # Pregnancies Ectopic pregnancies AB induced Hx Number of Living Children AB spontaneous Exam Const General: cooperative, healthy appearing, comfortable and no acute distress HENMT Other: Tenderness with palpation over her right parietal region of the skull, no palpable hematoma, no hemotympanum, no crepitus Eyes Pupils: PERRL EOM: EOM intact bilaterally Neck Other: Mild paraspinal tenderness without midline tenderness Chest Other: No crepitus or visible evidence of trauma Resp Effort & Inspection: normal respiratory effort Auscultation: clear to auscultation bilaterally Cardio Rate: regular rate Rhythm: regular rhythm GI Other: No abdominal tenderness Skin General skin exam: no rashes or lesions noted Neuro Other: GCS 15, strength and sensation intact distally, ambulatory with steady gait, DTRs intact all 4 extremities Extrem Other: Nontender, no visible evidence of trauma Course Vital Signs Vital signs: Vital Signs Temperature 36.5 C 06/29/21 13:03 Pulse 72 06/29/21 13:03 Respiratory Rate 18 06/29/21 13:03 Blood Pressure 124/78 06/29/21 13:03 Pulse Oximetry 98 06/29/21 13:03 Temperature 36.5 C 06/29/21 13:03 Temperature Source Temporal Artery Scan 06/29/21 13:03 Pulse 72 06/29/21 13:03 Respiratory Rate 18 06/29/21 13:03 Respiratory Effort 06/29/21 13:16 Respiratory Depth Normal 06/29/21 13:16 Respiratory Pattern Normal 06/29/21 13:16 Blood Pressure 124/78 06/29/21 13:03 Blood Pressure Position Sitting 06/29/21 13:03 Pulse Oximetry 98 06/29/21 13:03 Oxygen Delivery Method Room Air 06/29/21 13:03 Oxygen Flow Rate 0 06/29/21 13:03 Pain Level 8 06/29/21 13:16
--- NOTE | 2021-06-29 14:09 | DI.VRAD_ITS ---
PROCEDURE INFORMATION: Exam: CT Head Without Contrast Exam date and time: 06/29/2021 1:33 PM Age: 30 years old Clinical indication: Headache not specified; Patient HX: Head and neck pain S/P fall last night TECHNIQUE: Imaging protocol: Computed tomography of the head without contrast. Radiation optimization: All CT scans at this facility use at least one of these dose optimization techniques: automated exposure control; mA and/or kV adjustment per patient size (includes targeted exams where dose is matched to clinical indication); or iter there is mild mucosal thickening in the bilateral maxillary sinuses. ative reconstruction. COMPARISON: CT HEAD WITHOUT CONTRAST 02/09/2017 7:50 AM FINDINGS: Brain: Normal. No hemorrhage. Unremarkable white matter. No mass effect. Cerebral ventricles: No ventriculomegaly. Paranasal sinuses: Visualized sinuses are unremarkable. No fluid levels. Mastoid air cells: Visualized mastoid air cells are well aerated. Bones/joints: Unremarkable. No acute fracture. Soft tissues: Unremarkable. IMPRESSION: No acute intracranial abnormality. PROCEDURE INFORMATION: Exam: CT Cervical Spine Without Contrast Exam date and time: 06/29/2021 1:33 PM Age: 30 years old Clinical indication: Headache not specified; Patient HX: Head and neck pain S/P fall last night TECHNIQUE: Imaging protocol: Computed tomography images of the cervical spine without contrast. Radiation optimization: All CT scans at this facility use at least one of these dose optimization techniques: automated exposure control; mA and/or kV adjustment per patient size (includes targeted exams where dose is matched to clinical indication); or iterative reconstruction. COMPARISON: CT HEAD WITHOUT CONTRAST 02/09/2017 7:50 AM FINDINGS: Bones/joints: There is straightening of cervical lordosis with mild reversal centered at C6. Craniocervical junction within normal limits. There is no acute fracture. Discs/Spinal canal/Neural foramina: No significant disc protrusion. No severe spinal canal stenosis. No significant neural foraminal narrowing. Lungs: Lung apices are normal. Soft tissues: Unremarkable. IMPRESSION: 1. No acute fracture or subluxation. 2. Reversal of cervical lordosis could be seen with muscle spasm. Dictated and Authenticated by: Dakota Lora MD. Ordering:JUANCARLOS Das MD
[2021-06-29 14:42] VITALS: BP 113/74; PULSE 71; TEMP 36.3; O2SAT 98
--- NOTE | 2021-06-29 15:00 | NUR.NOTE ---
Nursing Note: Pt resting in bed with lights dimmed. Reports a little upset stomach. Continues to have mild ALEXANDRE. No other complaints at this time.
[2021-06-29 15:03] VITALS: BP 113/74; PULSE 71; RESP 18; O2SAT 98
== END 2021-06-29 15:05 | disposition home or self-care (01) ==
PROVIDERS: Emergency Provider Physician Assistant; PCP Nurse Practitioner Family
DX: S06.0X9A Concussion with loss of consciousness of unspecified duration, initial encounter (principal); M54.2 Cervicalgia; V85.4XXA Person injured while boarding or alighting from special construction vehicle, initial encounter
CPT/HCPCS: 99284; 70450; 72125; 99283

== ENCOUNTER 2021-10-31 10:02 | Emergency (ER) | payer MEDICAID, SELFPAY ==
--- NOTE | 2021-10-31 10:02 | ED.GENADUL_ITS ---
Discharge Plan Disposition Patient Disposition: HOME Condition: Stable Discharge Details Clinical Impression: Influenza A Primary Care Provider: Christiana Mosher ED Provider: Isabel Trejo Home Meds and New Rx's Prescriptions: Continued Nexplanon 68 mg implant 1 implant SBD ONCE Qty: 1 0RF Rx Instructions: as a single dose Complete 1 EACH tablet 1 ea PO DAILY Fusion 1 EACH capsule 1 ea PO DAILY multivitamin Tablet 1 tab PO DAILY ferrous gluconate 225 mg (27 mg iron) tablet 225 mg PO DAILY bupropion HCl 100 mg tablet 100 mg PO TID Rx Instructions: administer 6 hours apart Discharge Instructions Instructions: H1N1 Influenza (ED) Additional Instructions: You are positive for influenza A. Your COVID and RSV tests today are negative. Influenza a is a virus that is best treated with fluids, rest and alternating Tylenol and Ibuprofen. You can take Tylenol every 4 hours and ibuprofen every 6 hours as needed and directed for fever or pain. Drink plenty of fluids and get plenty of rest. Follow-up with your primary care doctor in 1 week. Return to the emergency department with any worsening or new concerning symptoms. Discharge Data Discharge Physician: Isabel Trejo Medical Decision Making 1015 -- 30-year-old female presents with feeling feverish, chills, body aches, fatigue, cough and diarrhea for the past 4 days. Heart rate 106, remainder of vitals within normal limits. She is afebrile. She appears uncomfortable but nontoxic. Normal ENT exam. Lungs clear bilaterally. No meningeal signs. Differential diagnosis include viral syndrome, influenza, COVID. History and presentation does not appear consistent with pneumonia at this time but will continue to monitor. Urine test negative. Will obtain a Fluvid and give a dose of Motrin and Tylenol and reassess. 1120 --influenza A positive. COVID and RSV test negative. Patient reassessed and she feels much better and feels comfortable going home. Advised to increase fluids, rest and alternate Tylenol and Motrin. Advised to follow up with the primary care doctor for re-evaluation. Usual and customary return precautions given prior to discharge. Medical Records Medical records reviewed: Yes I reviewed the patient's medical records. Lab Data Lab results reviewed: Yes I reviewed the patient's lab results. Labs: Laboratory Tests Range/Units 10/31/21 10:15 COVID-19 Source Not Applicable SARS-CoV-2 (PCR) (Negative) Negative Influenza Type A (PCR) (Negative) Positive A Influenza Type B (PCR) (Negative) Negative RSV (PCR) (Negative) Negative HPI General Mode of arrival: ambulatory . Date/Time Provider Initiated Documentation: 10/31/21 10:02 . Limitations to Documentation: no limitations . Information obtained by: patient . HPI Narrative: Patient is a 30-year-old female who presents for feeling feverish, chills, body aches, fatigue, cough and diarrhea for the past few days. Patient states her symptoms for started 4 days ago with fatigue and then progressed to body aches, chills and cough. She states she has had 1 episode of watery diarrhea. She states she has felt feverish but has not taken her temperature. She has not taken any Tylenol or Motrin today. She denies any shortness of breath, abdominal pain, vomiting, neck pain. [facility] called informing us that this patient was burning in her 4-year-old son for fever for the past week. On arrival to the ED with her son, patient checked in to the ED herself. She states she is unvaccinated for COVID and denies any known exposure to coronavirus. Related Data Home Medications Medication Instructions Recorded Confirmed vits,calcium 21-iron fum 1 ea PO DAILY 04/13/17 06/29/21 14 mg iron-folic acid 400 mcg tablet ( Complete) iron fumarate,polysacch no.1 130 1 ea PO DAILY 06/24/17 06/29/21 mg-vit C 25 mg-L. casei 30 mg capsule (Fusion) etonogestrel 68 mg subdermal 1 implant subdermal ONCE #1 ea 05/12/18 06/29/21 implant (Nexplanon) bupropion HCl 100 mg tablet 100 mg PO TID 04/01/21 06/29/21 ferrous gluconate 225 mg (27 mg 225 mg PO DAILY 04/01/21 06/29/21 iron) tablet multivitamin 1 tab PO DAILY 04/01/21 06/29/21 Previous Rx's Medication Instructions Recorded etonogestrel 68 mg subdermal 1 implant subdermal ONCE #1 ea 05/12/18 implant (Nexplanon) Allergies Allergy/AdvReac Type Severity Reaction Status Date / Time No Known Allergies Allergy Unverified 06/29/21 13:10 General Stated Complaint: GenMedical YUSUF: 2 Review of Systems All systems reviewed & are unremarkable except as noted in HPI and below Constitutional Constitutional: Reports body ache(s), Denies chills, Denies excessive sweating, Reports fatigue, Reports fever(s), Denies weakness and Denies weight loss Eyes Eyes: Reports system reviewed and no additional complaints, except as documented and Denies blurry vision ENT Ears, Nose, Mouth, and Throat: Denies vertigo, Denies dizziness, Denies otalgia, Denies nasal congestion, Denies sore throat and Denies throat swelling Cardiovascular Cardiovascular: Denies chest pain, Denies syncope, Denies rapid heart rate and Denies dyspnea Respiratory Respiratory: Denies chest congestion, Reports cough, Denies pain on inspiration and Denies dyspnea Gastrointestinal Gastrointestinal: Denies abdominal pain, Reports diarrhea and Denies vomiting Genitourinary Genitourinary: Denies hematuria, Denies dysuria and Denies flank pain Musculoskeletal Musculoskeletal: Denies back pain and Denies joint swelling Integumentary/Breasts Skin/Breast: Denies lesions and Denies rash Neurologic Neurologic: Denies behavioral changes, Denies confusion, Denies vertigo, Denies dizziness, Denies syncope, Denies localized weakness and Denies weakness Psychiatric Psychiatric: Denies behavioral changes, Denies confusion and Denies depression Endocrine Endocrine: Denies excessive sweating and Reports fatigue Hematologic/Lymphatic Hematologic/Lymphatic: Denies easy bruising and Denies lymphadenopathy Allergic/Immunologic Allergic/Immunologic: Denies throat swelling PFSH All Active Problems (Updated 04/01/21 @ 15:30 by Christina FLEMING) Influenza A (Acute) High frequency sensorineural hearing loss of left ear (Acute) Osteoporosis screening (Acute) Obesity (Chronic) Strain of thoracic back region (Acute) Dysfunctional uterine bleeding (Acute) Anxiety and depression (Chronic) Fatigue (Acute) History of anemia (Acute) Cough (Acute) Decreased hearing of both ears (Acute) Fracture of phalanx of right ring finger (Acute) Closed fracture of phalanx of right middle finger (Acute) Nexplanon in place (Acute) Placed 05/2018. History of delivery (Acute) SROM with at 30 weeks EGA. complicated by first trimester bleeding x2. without sequela. Hx of bariatric surgery (Acute 06/22/17) 2015 BMI 45kg/m2. 306lbs. 04/2017 BMI 26.6kg/m2. 173lbs. 06/2017 Low Vit D, pre-albumin. Nl TIBC, nl ferritin. Medical History (Updated 10/31/21 @ 11:19 by Isabel Trejo DO) Attention deficit disorder (ADD) in adult Hx of bariatric surgery 06/2017 Prealbumin, Vit D low iron saturation low. Nl TIBC, nl ferritin. Hx of obesity 2015 BMI 45 kg/m2. 302lbs 04/2017 BMI 26.6kg/m2. 173lbs. [place]p [place]ric [place] [facility] [place] (Updated 04/01/21 @ 15:30 by Christina FLEMING) [place]2014[place] [facility] [place] gastric [place]. Family History Mother Diabetes Father Heart disease Social History Smoking/Tobacco Use Status: Never Smoking risk assessment performed?: Yes Alcohol Intake: never Drug use: Never Substance use type: does not use Household members: significant other and other Details: Tory. 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 Do you feel safe at home: Yes Do you feel safe in your relationship?: Yes Female Reproductive History Menstrual control method: implanted History History 1 Para 1 Hx # Term Pregnancies Multiple births Hx # Pregnancies Ectopic pregnancies AB induced Hx Number of Living Children AB spontaneous Exam Const General: cooperative and healthy appearing Orientation: alert, awake and oriented x3 HENMT Head: normal to inspection Ears: hearing grossly normal bilaterally, external ears normal and TM's normal bilaterally General nose exam: external nose normal Face and sinus: normal facial exam Mouth: oral mucosae normal Teeth and gingiva: dentition normal Throat: posterior oropharynx normal Eyes General: appearance normal, both eyes and all related structures Eyelids: eyelids normal Pupils: PERRL EOM: EOM intact bilaterally Neck Neck: normal visual inspection Lymphatic: no lymphadenopathy noted Chest Chest: normal inspection of the chest Resp Effort & Inspection: normal respiratory effort and able to speak in complete sentences Auscultation: clear to auscultation bilaterally Cardio Rate: regular rate Rhythm: regular rhythm GI Inspection: normal to inspection Palpation: soft, not firm, no guarding, no hepatosplenomegaly, no masses and nontender Auscultation: normal bowel sounds Back/Spine/Pelvis Back: no CVA tenderness Skin General skin exam: no rashes or lesions noted Neuro General: patient alert and patient awake Cognition: normal cognition Speech: speech normal Gait: normal gait Motor: muscle tone normal throughout Sensory Exam: no sensory deficits noted Extrem General: normal to inspection, full ROM and capillary refill normal Psych Appearance: grossly normal Mental Status: mental status grossly normal Speech and Movement: speech and movement normal Affect: normal affect Thought Process: normal
[2021-10-31 10:19] VITALS: BP 127/76; PULSE 106; RESP 18; TEMP 37; O2SAT 99
[2021-10-31] MEDS: Acetaminophen 500 MG TAB 1000 MG PO (10:45)
[2021-10-31] MEDS: Ibuprofen 600 MG TAB PO (10:45)
[2021-10-31 11:08] LABS: COVID-19 PCR Negative (Negative); Influenza B PCR Negative (Negative); RSV PCR Negative (Negative)
[2021-10-31 11:14] LABS: Influenza A PCR Positive (Negative)
== END 2021-10-31 12:44 | disposition home or self-care (01) ==
PROVIDERS: Emergency Provider Physician Assistant; PCP Nurse Practitioner Family
DX: J10.1 Influenza due to other identified influenza virus with other respiratory manifestations (principal)
CPT/HCPCS: 87637; 99282

== ENCOUNTER 2022-03-27 10:42 | Outpatient (REF) | payer MEDICAID, SELFPAY ==
[2022-03-27 15:30] LABS: Abs Immature Grans 0.01 10^3/uL (0.0-0.06); Absolute Basophil Count 0.03 10^3/uL (0.0-0.2); Absolute Lymphocyte Count 1.46 10^3/uL (1.2-3.4); Absolute Monocyte Count 0.38 10^3/uL (0.1-0.8); Absolute Neutrophil Count 3.05 10^3/uL (1.2-6.7); Basophils % 0.6; Eosinophils % 3.9; HCT 43.3 % (36.0-46.0); HGB 14.2 g/dL (11.2-15.7); Immature Grans % 0.2; Lymphocytes % 28.5; MCHC 32.8 % (32.0-36.0); MCV 89 fL (80-95); MPV 11.9 fL (8.0-11.0); Monocytes % 7.4; Neutrophils % 59.4; Platelet Count 210 10^3/uL (130-400); RBC 4.89 10^6/uL (3.93-5.22); RDW-SD 42.1 fL; WBC 5.13 10^3/uL (4.4-10.8)
[2022-03-27 15:57] LABS: Iron 70 ug/dL (50-170); Total Iron Binding Capacity 316 ug/dL (250-450); Transferrin Sat 22 % (15-50)
[2022-03-27 16:09] LABS: ALT 20 U/L (14-59); AST 14 U/L (15-37); Alkaline Phosphatase 25 U/L (46-116); Anion Gap 6.8 mmol/L (3-11); BUN 11 mg/dL (7-18); Bilirubin, Total 0.3 mg/dL (0.2-1.0); CO2 30.2 mmol/L (21.0-32.0); CREATININE 0.9 mg/dL (0.55-1.02); Calcium 9.3 mg/dL (8.5-10.1); Chloride 106 mmol/L (98-107); Estimated GFR 87.65 (mL/min/1.73m2); Folate 7.7 ng/mL (8.6-20.0); Glucose 81 mg/dL (74-106); Potassium 4.4 mmol/L (3.5-5.1); Sodium 143 mmol/L (136-145); Vitamin B12 433 pg/mL (193-986)
[2022-03-28 13:00] LABS: Parathyroid Hormone,Intact 26 pg/mL (19-88)
== END 2022-03-27 10:43 | disposition home or self-care (01) ==
LOC: NCHCN 10:42
PROVIDERS: PCP Nurse Practitioner Family; Visit Provider Nurse Practitioner Family
DX: E66.9 Obesity, unspecified (principal); F41.8 Other specified anxiety disorders; F43.23 Adjustment disorder with mixed anxiety and depressed mood; Z98.0 Intestinal bypass and anastomosis status
CPT/HCPCS: 80053; 82306; 82607; 82746; 83540; 83550; 83970; 84443; 85025

== ENCOUNTER 2022-04-09 08:33 | Emergency (ER) | payer MEDICAID, SELFPAY ==
--- NOTE | 2022-04-09 08:30 | DI.RAD_ITS ---
Exam(s) XR ANKLE LT COMPLETE EXAM: XR ANKLE LT COMPLETE CLINICAL HISTORY: Injury, R/O Fracture TECHNIQUE: 2D digital imaging was performed. Three views. COMPARISON: No exams were available for comparison FINDINGS: BONES: Question of tiny ar of bone fractured from the tip of the lateral malleolus.. No bony shahram tructive lesion is seen. JOINTS:The ankle mortise is normally aligned. SOFT TISSUE: Swelling greater around lateral malleolus. IMPRESSION: Question of a tiny fracture fragment from the tip of the lateral malleolus. DATA REPOSITORY: RADIATION DOSE DELIVERED:
[2022-04-09 08:42] VITALS: BP 115/62; PULSE 87; RESP 16; TEMP 37.1; O2SAT 98
--- NOTE | 2022-04-09 08:45 | ED.GENADUL_ITS ---
Discharge Plan Disposition Patient Disposition: HOME Condition: Stable Discharge Details Clinical Impression: Closed fracture of lateral malleolus of left ankle Primary Care Provider: Christiana Mosher ED Provider: Yuliana Medina Home Meds and New Rx's Prescriptions: Continued Nexplanon 68 mg implant 1 implant SBD ONCE Qty: 1 0RF Rx Instructions: as a single dose multivitamin Tablet 1 tab PO DAILY ferrous gluconate 225 mg (27 mg iron) tablet 225 mg PO DAILY bupropion HCl 100 mg tablet 100 mg PO TID Rx Instructions: administer 6 hours apart Discharge Instructions Instructions: Ankle Fracture (ED) Additional Instructions: The x-rays show a questionable tiny avulsion type fracture to the left lateral malleolus which is where swelling and tenderness is. Please wear the walking b oot and use crutches and advance weightbearing as tolerated. Please follow-up with orthopedics in the next 1 to 2 weeks. Please take Tylenol or Ibuprofen with food every 4-6 hours as needed for pain and swelling. Rest, ice, compression, elevation when sitting or lying down. You may take the walking boot off when sitting or lying down. Stand Alone Forms: Work Release Referrals: Rafael Bhatt MD [ [facility] STAFF PHYSICIAN] - 2 weeks Medical Decision Making 31-year-old female presents to the ER with chief complaint of left ankle pain after an injury while getting out of her jeep yesterday. She reports that she rolled her ankle fell down and became nauseous. She does have increased pain with weightbearing. There is some swelling noted to her lateral malleolus. Increased pain with range of motion. Ice, x-ray, Tylenol ordered. Patient placed in a walking boot and given crutches instructed to follow-up with Ortho as needed discussed home care, verbalized understanding. This text was generated using [employer] dictation system, please disregard any oddities of phrase or misspellings. Imaging Data Radiologic Study: Imaging: X-Ray Radiologist's impression: FINDINGS: BONES: Question of tiny ar of bone fractured from the tip of the lateral malleolus.. No bony destructive lesion is seen. JOINTS:The ankle mortise is normally aligned. SOFT TISSUE: Swelling greater around lateral malleolus. IMPRESSION: Question of a tiny fracture fragment from the tip of the lateral malleolus. HPI General Mode of arrival: ambulatory . Date/Time Provider Initiated Documentation: 04/09/22 08:44 . Limitations to Documentation: no limitations . Information obtained by: patient, RN notes reviewed and old records reviewed . HPI Narrative: 31-year-old female presents to the ER with chief complaint of left ankle pain after an injury while getting out of her jeep yesterday. She reports that she rolled her ankle fell down and became nauseous. She does have increased pain with weightbearing. There is some swelling noted to her lateral malleolus. Increased pain with range of motion. No other injuries noted. She did take Tylenol last night and this morning. She denies any possibility of she does have the Nexplanon implant control. Related Data Home Medications Medication Instructions Recorded Confirmed etonogestrel 68 mg subdermal 1 implant subdermal ONCE #1 ea 05/12/18 06/29/21 implant (Nexplanon) bupropion HCl 100 mg tablet 100 mg PO TID 04/01/21 06/29/21 ferrous gluconate 225 mg (27 mg 225 mg PO DAILY 04/01/21 06/29/21 iron) tablet multivitamin 1 tab PO DAILY 04/01/21 06/29/21 Previous Rx's Medication Instructions Recorded etonogestrel 68 mg subdermal 1 implant subdermal ONCE #1 ea 05/12/18 implant (Nexplanon) Allergies Allergy/AdvReac Type Severity Reaction Status Date / Time No Known Allergies Allergy Unverified 04/09/22 08:46 General Stated Complaint: Orthopedic YUSUF: 4 Review of Systems All systems reviewed & are unremarkable except as noted in HPI and below Musculoskeletal Musculoskeletal: Reports arthralgias and Reports joint swelling PFSH All Active Problems Closed fracture of lateral malleolus of left ankle (Acute) High frequency sensorineural hearing loss of left ear (Acute) Osteoporosis screening (Acute) Obesity (Chronic) Strain of thoracic back region (Acute) Dysfunctional uterine bleeding (Acute) Anxiety and depression (Chronic) Fatigue (Acute) History of anemia (Acute) Cough (Acute) Decreased hearing of both ears (Acute) Fracture of phalanx of right ring finger (Acute) Closed fracture of phalanx of right middle finger (Acute) Nexplanon in place (Acute) Placed 05/2018. History of delivery (Acute) SROM with at 30 weeks EGA. complicated by first trimester bleeding x2. Infant without sequela. Hx of bariatric surgery (Acute 06/22/17) 2015 BMI 45kg/m2. 306lbs. 04/2017 BMI 26.6kg/m2. 173lbs. 06/2017 Low Vit D, pre-albumin. Nl TIBC, nl ferritin. Medical History Attention deficit disorder (ADD) in adult Hx of bariatric surgery 06/2017 Prealbumin, Vit D low iron saturation low. Nl TIBC, nl ferritin. Hx of obesity 2015 BMI 45 kg/m2. 302lbs 04/2017 BMI 26.6kg/m2. 173lbs. s/p bariatric surgery [facility] [place] Surgical History bariatric surgery (~2014) [facility] [place] Lin en Y gastric bypass. Family History Mother Diabetes Father Heart disease Social History Smoking/Tobacco Use Status: Never Smoking risk assessment performed?: Yes Alcohol Intake: current Alcohol Intake frequency: a few times a month Drug use: Never Substance use type: does not use Household members: significant other and other Details: Tory. 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 Do you feel safe at home: Yes Do you feel safe in your relationship?: Yes Female Reproductive History Menstrual control method: implanted History History 1 Para 1 Hx # Term Pregnancies Multiple births Hx # Pregnancies Ectopic pregnancies AB induced Hx Number of Living Children AB spontaneous Exam Extrem General: normal to inspection and capillary refill normal Left lower extremity: ankle Details: tenderness and swelling Details: laterally; no warmth, no abrasions, no lacerations and no ecchymosis Course Vital Signs Vital signs: Vital Signs Temperature 37.1 C 04/09/22 08:42 Pulse 87 04/09/22 08:42 Respiratory Rate 16 04/09/22 08:42 Blood Pressure 115/62 04/09/22 08:42 Pulse Oximetry 98 04/09/22 08:42 Temperature 37.1 C 04/09/22 08:42 Temperature Source Temporal Artery Scan 04/09/22 08:42 Pulse 87 04/09/22 08:42 Respiratory Rate 16 04/09/22 08:42 Respiratory Effort Non-Labored 04/09/22 08:44 Blood Pressure 115/62 04/09/22 08:42 Blood Pressure Position Sitting 04/09/22 08:42 Pulse Oximetry 98 04/09/22 08:42 Oxygen Delivery Method Room Air 04/09/22 08:42 Oxygen Flow Rate 0 04/09/22 08:42 Pain Level 7 04/09/22 08:42 PAWSS Have you Been Recently Intoxicated or Drunk Within the Last 30 days?: No Have you Ever Experienced Previous Episodes of Alcohol Withdrawal?: No Have you ever Experienced Withdrawal Seizures?: No Have you ever Experienced Delirium Tremens(DT)s?: No Have you ever undergone Alcohol Rehabilitation Treatment (i.e, inpt ot outpatient treatment programs)?: No Have you ever Experienced Blackouts?: No Have you ever Combined Alcohol with other Downers within the last 90 days?: No Have you ever Combined Alcohol with any other Substance of Abuse during the last 90 days?: No Positive Blood Alcohol level on Presentation? [PCS.BAL]: No Evidence of Increased Autonomic Activity (i.e. HR>120, tremor, sweating, agitation, nausea)?: No Result: 0
[2022-04-09] MEDS: Acetaminophen 325 MG TAB 650 MG PO (09:13)
== END 2022-04-09 09:36 | disposition home or self-care (01) ==
PROVIDERS: Emergency Provider Registered Nurse Emergency; PCP Nurse Practitioner Family
DX: S82.62XA Displaced fracture of lateral malleolus of left fibula, initial encounter for closed fracture (principal); W17.89XA Other fall from one level to another, initial encounter
CPT/HCPCS: 99283; 73610

== ENCOUNTER 2022-10-12 11:09 | Emergency (ER) | payer MEDICAID, SELFPAY ==
[2022-10-12 11:11] VITALS: BP 124/86; PULSE 78; RESP 15; TEMP 36.6; O2SAT 99
--- NOTE | 2022-10-12 11:22 | W.ED.GENAD ---
Discharge Plan Disposition Patient Disposition: Home Condition: Stable Discharge Details Clinical Impression: Laceration of left hand Primary Care Provider: Christiana Mosher ED Provider: Baron Trujillo Home Meds and New Rx's Prescriptions: Continued Nexplanon 68 mg implant 1 implant SBD ONCE Qty: 1 0RF Rx Instructions: as a single dose multivitamin Tablet 1 tab PO DAILY ferrous gluconate 225 mg (27 mg iron) tablet 225 mg PO DAILY Patient Comments: no longer taking 10/12/22 CT bupropion HCl 100 mg tablet 100 mg PO TID Patient Comments: No longer taking 10/12/22b CT Rx Instructions: administer 6 hours apart Discharge Instructions Instructions: Laceration (ED) Additional Instructions: use the finger splint for the next 3 days return in 7-10 days for evaluation of suture remvoal, or sooner if signs of infection develop such as spreading redness or yellow/white discharge from the wound. Medical Decision Making 31 yo female who is utd on tetanus vaccines comes in with cc of left index finger laceration. She was using a knife to make a cut on a fishing pole when her hand slipped and caused her to cut the left anterior proximal index finger. She did not fall or sustain other injuries. She has a 3cm laceration that runs horizontally over the left proximal index finger over the pip joint. She can full flex and extend at all the joints. normal sensation and pulses. Will place digital block, irrigate and examine further. irrigated wound copiously, intact tendon visualized and again full rom at the mcp, pip and dip joint with intact sensation. Closed with 3 sutures, will hae her wear a finger splint as well. Advised to return in 7-10 days for suture removal, sooner if signs of infection Differential Diagnosis Differential Diagnosis: laceration, tendon injury HPI General Mode of arrival: ambulatory. Date/Time Provider Initiated Documentation: 10/12/22 11:12. Limitations to Documentation: no limitations. Information obtained by: patient. History of Present Illness 31 year old F presents to the emergency department with the chief complaint of left index finger laceration, described as moderate, Quality is described as aching, and is localized to the left and upper extremity. Patient reports no radiation. Patient started experiencing this hour(s) (1) and it has been constant. No relieving factors improve symptom(s), No exacerbating factors reported . Patient notes no other symptoms.. Patient did receive the following treatments prior to arrival, none Related Data Home Medications Medication Instructions Recorded Confirmed etonogestrel 68 mg subdermal 1 implant subdermal ONCE #1 ea 05/12/18 10/12/22 implant (Nexplanon) bupropion HCl 100 mg tablet 100 mg PO TID 04/01/21 06/29/21 ferrous gluconate 225 mg (27 mg 225 mg PO DAILY 04/01/21 06/29/21 iron) tablet multivitamin 1 tab PO DAILY 04/01/21 10/12/22 Previous Rx's Medication Instructions Recorded etonogestrel 68 mg subdermal 1 implant subdermal ONCE #1 ea 05/12/18 implant (Nexplanon) Allergies Allergy/AdvReac Type Severity Reaction Status Date / Time No Known Allergies Allergy Unverified 10/12/22 11:16 General Stated Complaint: Laceration YUSUF: 3 Review of Systems All systems reviewed & are unremarkable except as noted in HPI and below Constitutional Constitutional: Denies chills, Denies fever(s) and Denies weakness Cardiovascular Cardiovascular: Denies chest pain and Denies dyspnea Respiratory Respiratory: Denies cough and Denies dyspnea Gastrointestinal Gastrointestinal: Denies abdominal pain, Denies nausea and Denies vomiting Musculoskeletal Musculoskeletal: Denies joint swelling Neurologic Neurologic: Denies weakness PFSH All Active Problems Laceration of left hand (Acute) High frequency sensorineural hearing loss of left ear (Acute) Osteoporosis screening (Acute) Obesity (Chronic) Strain of thoracic back region (Acute) Dysfunctional uterine bleeding (Acute) Anxiety and depression (Chronic) Fatigue (Acute) History of anemia (Acute) Cough (Acute) Decreased hearing of both ears (Acute) Fracture of phalanx of right ring finger (Acute) Closed fracture of phalanx of right middle finger (Acute) Nexplanon in place (Acute) Placed 05/2018. History of delivery (Acute) SROM with at 30 weeks EGA. complicated by first trimester bleeding x2. Infant without sequela. Hx of bariatric surgery (Acute 06/22/17) 2015 BMI 45kg/m2. 306lbs. 04/2017 BMI 26.6kg/m2. 173lbs. 06/2017 Low Vit D, pre-albumin. Nl TIBC, nl ferritin. Medical History Attention deficit disorder (ADD) in adult Hx of bariatric surgery 06/2017 Prealbumin, Vit D low iron saturation low. Nl TIBC, nl ferritin. Hx of obesity 2015 BMI 45 kg/m2. 302lbs 04/2017 BMI 26.6kg/m2. 173lbs. s/p [place]ariatric [place] [facility] [place] History bariatric surgery (~2014) [facility] [place] Lin en Y gastric bypass. Family History Mother Diabetes Father Heart disease Social History Smoking/Tobacco Use Status: Never Smoking risk assessment performed?: Yes Alcohol Intake: current Alcohol Intake frequency: a few times a month Drug use: Never Substance use type: does not use Household members: significant other and other Details: Tory. 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 Do you feel safe at home: Yes Do you feel safe in your relationship?: Yes Female Reproductive History Menstrual control method: implanted History History 1 Para 1 Hx # Term Pregnancies Multiple births Hx # Pregnancies Ectopic pregnancies AB induced Hx Number of Living Children AB spontaneous Exam Const General: no acute distress Orientation: alert HENDC Head: normal to inspection Ears: external ears normal General nose exam: external nose normal Mouth: moist mucous membranes Eyes General: appearance normal, both eyes and all related structures Neck Neck: normal visual inspection Resp Effort & Inspection: normal respiratory effort and able to speak in complete sentences Cardio Rate: regular rate Skin General skin exam: no rashes or lesions noted Neuro General: patient alert and patient oriented x3 Extrem General: full ROM and capillary refill normal Psych Mental Status: mental status grossly normal Course Vital Signs Vital signs: Vital Signs Temperature 36.6 C 10/12/22 11:11 Pulse 78 10/12/22 11:11 Respiratory Rate 15 10/12/22 11:11 Blood Pressure 124/86 10/12/22 11:11 Pulse Oximetry 99 10/12/22 11:11 Temperature 36.6 C 10/12/22 11:11 Pulse 78 10/12/22 11:11 Respiratory Rate 15 10/12/22 11:11 Respiratory Effort Normal 10/12/22 11:18 Blood Pressure 124/86 10/12/22 11:11 Blood Pressure Position Sitting 10/12/22 11:11 Pulse Oximetry 99 10/12/22 11:11 Oxygen Delivery Method Room Air 10/12/22 11:11 Oxygen Flow Rate 0 10/12/22 11:11 Pain Level 0 10/12/22 11:17 Procedures Laceration Laceration 1: Site: hand and other Side (If applicable): left Size (cm): 3 Description: linear Local Anesthetic: Lidocaine 1% Amount of anesthesia used (mL): 6 Pre-repair: wound explored and irrigated extensively Skin layer closed with: nylon Size (cm): 5-0 Size: 5-0 Number of sutures: 3 Technique: simple, interrupted
[2022-10-12 11:51] VITALS: BP 124/86; PULSE 78; RESP 15; TEMP 36.6; O2SAT 99
== END 2022-10-12 11:53 | disposition home or self-care (01) ==
PROVIDERS: Emergency Provider Emergency Medicine; PCP Nurse Practitioner Family
DX: S61.211A Laceration without foreign body of left index finger without damage to nail, initial encounter (principal); W26.0XXA Contact with knife, initial encounter
CPT/HCPCS: 12002

== ENCOUNTER 2022-10-26 10:32 | Emergency (ER) | payer MEDICAID, SELFPAY ==
[2022-10-26 10:35] VITALS: BP 135/95; PULSE 93; RESP 18; O2SAT 100
--- NOTE | 2022-10-26 10:50 | W.ED.GENAD ---
Discharge Plan Disposition Patient Disposition: Home Discharge Details Clinical Impression: Flexor tendon laceration, finger, open wound Primary Care Provider: Christiana Mohser ED Provider: Pippa Lemus Home Meds and New Rx's Prescriptions: Continued Nexplanon 68 mg implant 1 implant SBD ONCE Qty: 1 0RF Rx Instructions: as a single dose multivitamin Tablet 1 tab PO DAILY ferrous gluconate 225 mg (27 mg iron) tablet 225 mg PO DAILY Patient Comments: no longer taking 10/12/22 CT bupropion HCl 100 mg tablet 100 mg PO TID Patient Comments: No longer taking 10/12/22b CT Rx Instructions: administer 6 hours apart Discharge Instructions Additional Instructions: Please follow-up with orthopedics on Thursday, keep your finger in a splint I suspect you have a flexor tendon laceration, it is important that this is evaluated by orthopedics You may take ibuprofen and Tylenol as needed for pain Return earlier should you have new or worsening complaints Stand Alone Forms: Work Release Referrals: Christiana Mosher [Primary Care Provider] - 1 day Karlos Guerrier MD [ [facility] STAFF PHYSICIAN] - 1 day Medical Decision Making Patient would likely flexor tendon laceration on left second digit, will place in splint and refer to orthopedics No evidence of secondary infection Return precautions discussed and patient expressed understanding HPI General Date/Time Provider Initiated Documentation: 10/26/22 10:40. HPI Narrative: This 31-year-old female presents for reevaluation and suture removal of second digit laceration. She states she is unable to flex her finger and is concerned regarding the paresthesias. She states that overall laceration site looks improved. She said her tetanus is up-to-date. Related Data Home Medications Medication Instructions Recorded Confirmed etonogestrel 68 mg subdermal 1 implant subdermal ONCE #1 ea 05/12/18 10/26/22 implant (Nexplanon) bupropion HCl 100 mg tablet 100 mg PO TID 04/01/21 10/26/22 ferrous gluconate 225 mg (27 mg 225 mg PO DAILY 04/01/21 10/26/22 iron) tablet multivitamin 1 tab PO DAILY 04/01/21 10/26/22 Previous Rx's Medication Instructions Recorded etonogestrel 68 mg subdermal 1 implant subdermal ONCE #1 ea 05/12/18 implant (Nexplanon) Allergies Allergy/AdvReac Type Severity Reaction Status Date / Time No Known Allergies Allergy Unverified 10/26/22 10:43 General Stated Complaint: SutureRem YUSUF: 4 PFSH All Active Problems Laceration of left hand (Acute) Flexor tendon laceration, finger, open wound (Acute) High frequency sensorineural hearing loss of left ear (Acute) Osteoporosis screening (Acute) Obesity (Chronic) Strain of thoracic back region (Acute) Dysfunctional uterine bleeding (Acute) Anxiety and depression (Chronic) Fatigue (Acute) History of anemia (Acute) Cough (Acute) Decreased hearing of both ears (Acute) Fracture of phalanx of right ring finger (Acute) Closed fracture of phalanx of right middle finger (Acute) Nexplanon in place (Acute) Placed 05/2018. History of delivery (Acute) SROM with at 30 weeks EGA. complicated by first trimester bleeding x2. without sequela. Hx of bariatric surgery (Acute 06/22/17) 2015 BMI 45kg/m2. 306lbs. 04/2017 BMI 26.6kg/m2. 173lbs. 06/2017 Low Vit D, pre-albumin. Nl TIBC, nl ferritin. Medical History Attention deficit disorder (ADD) in adult Hx of bariatric surgery 06/2017 Prealbumin, Vit D low iron saturation low. Nl TIBC, nl ferritin. Hx of obesity 2015 BMI 45 kg/m2. 302lbs 04/2017 BMI 26.6kg/m2. 173lbs. [place] [facility] [place] [facility] [place] Lin [place] gastric [place]. Family History Mother Diabetes Father Heart disease Social History Smoking/Tobacco Use Status: Never Smoking risk assessment performed?: Yes Alcohol Intake: current Alcohol Intake frequency: a few times a month Drug use: Never Substance use type: does not use Household members: significant other and other Details: Tory. 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 Do you feel safe at home: Yes Do you feel safe in your relationship?: Yes Female Reproductive History Menstrual control method: implanted History History 1 Para 1 Hx # Term Pregnancies Multiple births Hx # Pregnancies Ectopic pregnancies AB induced Hx Number of Living Children AB spontaneous Exam Narrative Exam Narrative: Unable to flex second digit on left hand, well-healing and approximated suture site Course Vital Signs Vital signs: Vital Signs Pulse 93 H 10/26/22 10:35 Respiratory Rate 18 10/26/22 10:35 Blood Pressure 135/95 H 10/26/22 10:35 Pulse Oximetry 100 10/26/22 10:35 Pulse 93 H 10/26/22 10:35 Respiratory Rate 18 10/26/22 10:35 Respiratory Effort Normal 10/26/22 10:43 Blood Pressure 135/95 H 10/26/22 10:35 Blood Pressure Position Sitting 10/26/22 10:35 Pulse Oximetry 100 10/26/22 10:35 Oxygen Delivery Method Room Air 10/26/22 10:35 Oxygen Flow Rate 0 10/26/22 10:35 Pain Level 0 10/26/22 10:35
== END 2022-10-26 10:54 | disposition home or self-care (01) ==
PROVIDERS: Emergency Provider Physician Assistant; PCP Nurse Practitioner Family
DX: S56.12 Laceration of flexor muscle, fascia and tendon of other and unspecified finger at forearm level (principal); X58.XXXD Exposure to other specified factors, subsequent encounter; Z48.02 Encounter for removal of sutures

== ENCOUNTER 2022-11-21 16:25 | Outpatient (CLI) | payer OTHER, SELFPAY ==
--- NOTE | 2022-11-21 15:30 | DI.RAD_ITS ---
Exam(s) XR KNEE LT 3V AP,LAT,BHAVANA EXAM: XR KNEE LT 3V AP,LAT,BHAVANA CLINICAL HISTORY: left pain knee, M25.562. TECHNIQUE: 2D digital imaging was performed. COMPARISON: No exams were available for comparison FINDINGS: 3 views No evidence of fracture nor obvious joint effusion. No joint space narrowing. No osteophytes. No o steochondral defects. Bone density normal IMPRESSION: No acute osseous findings in the knee. DATA REPOSITORY: RADIATION DOSE DELIVERED:
== END 2022-11-21 16:45 ==
PROVIDERS: PCP Nurse Practitioner Family; Visit Provider Physician Assistant
DX: M25.562 Pain in left knee (principal)
CPT/HCPCS: 73562

== ENCOUNTER 2023-01-28 16:04 | Outpatient (REF) | payer BC, MEDICAID, SELFPAY | END 2023-01-28 16:05 | disposition home or self-care (01) | LOC: LBN 16:04 | PROVIDERS: PCP Nurse Practitioner Family; Visit Provider Physician Assistant Medical | DX: J02.9 Acute pharyngitis, unspecified (principal) | CPT/HCPCS: 87070 ==

== ENCOUNTER 2023-06-24 18:25 | Outpatient (REF) | payer BC, MEDICAID, SELFPAY ==
[2023-06-24 20:37] LABS: Source Nasal/Nares
[2023-06-24 21:43] LABS: COVID-19 PCR Negative (Negative)
== END 2023-06-24 18:26 | disposition home or self-care (01) ==
LOC: LBN 18:25
PROVIDERS: PCP Nurse Practitioner Family; Visit Provider Physician Assistant Medical
DX: R11.10 Vomiting, unspecified (principal); Z20.822 Contact with and (suspected) exposure to COVID-19
CPT/HCPCS: 87635

== ENCOUNTER 2024-02-22 18:07 | Emergency (ER) | payer BC, MEDICAID, SELFPAY ==
[2024-02-22 18:18] VITALS: BP 109/76; PULSE 114; RESP 12; TEMP 39.2; O2SAT 96
[2024-02-22 19:00] LABS: COVID-19 PCR Negative (Negative); Influenza A PCR Negative (Negative); Influenza B PCR Negative (Negative); RSV PCR Negative (Negative); Source NASOPHARYNX
[2024-02-22] MEDS: Acetaminophen 500 MG TAB 1000 MG PO (19:06)
[2024-02-22] MEDS: Ondansetron O.D.T. 4 MG TABEF PO (19:24)
[2024-02-22] MEDS: Ondansetron O.D.T. 4 MG TABEF, 3 TABS/BTL PO (19:24)
[2024-02-22 19:25] VITALS: BP 109/76; PULSE 114; RESP 12; TEMP 38.8; O2SAT 96
[2024-02-22 19:28] VITALS: BP 109/76; PULSE 100; RESP 14; TEMP 38.8; O2SAT 96
--- NOTE | 2024-02-22 21:46 | ED.GENADUL_ITS ---
Discharge Plan Disposition Patient Disposition: Home Condition: Stable Discharge Details Clinical Impression: Fever, Acute viral syndrome Primary Care Provider: Christiana Mosher ED Provider: Maryam Dominguez Home Meds and New Rx's Prescriptions: New ondansetron 4 mg tablet,disintegrating 4 mg PO Q6H PRN (Reason: nausea and vomiting) Qty: 20 0RF No Action Nexplanon 68 mg implant 1 implant SBD ONCE Qty: 1 0RF Rx Instructions: as a single dose multivitamin Tablet 1 tab PO DAILY Discharge Instructions Instructions: Fever of Unknown Origin (DC) Additional Instructions: COVID and flu testing are negative today take Zofran as needed for nausea and try to increase your oral hydration. Drink Gatorade or Pedialyte in addition to water You may continue to have fever for a few days, please take Motrin or Tylenol to help with this Return to the emergency department if you are not tolerating anything by mouth or feel that symptoms are worsening HPI General Date/Time Provider Initiated Documentation: 02/22/24 18:29 . Limitations to Documentation: no limitations . Information obtained by: patient . HPI Narrative: 33-year-old female without significant past medical history presents for evaluation of fever. Symptoms started last night and have been progressively worsening today. She has fever associated with chills and bodyaches. She took some children's Tylenol earlier, but did have vomiting. She states that she is now able to tolerate liquids. Denies any diarrhea. Reports just severe body aches. And fatigue. No cough, sore throat or abdominal pain. No known sick contacts. Related Data Home Medications ?Medication ?Instructions ?Recorded ?Confirmed etonogestrel 68 mg subdermal 1 implant subdermal ONCE #1 ea 05/12/18 02/22/24 implant (Nexplanon) multivitamin 1 tab PO DAILY 04/01/21 02/22/24 ondansetron 4 mg disintegrating 4 mg PO Q6H PRN nausea and 02/22/24 tablet vomiting #20 tabs Previous Rx's ?Medication ?Instructions ?Recorded etonogestrel 68 mg subdermal 1 implant subdermal ONCE #1 ea 05/12/18 implant (Nexplanon) ondansetron 4 mg disintegrating 4 mg PO Q6H PRN nausea and 02/22/24 tablet vomiting #20 tabs Allergies Allergy/AdvReac Type Severity Reaction Status Date / Time No Known Allergies Allergy Unverified 02/22/24 18:18 General Stated Complaint: Fever YUSUF: 3 Exam Narrative Exam Narrative: review of Systems: All systems reviewed & are unremarkable except as noted in HPI and below Well-developed, no acute distress +fever NCAT PERRL, normal conjunctiva no tonsillar exudates RRR, no murmu Unlabored respiratory effort, CTAB Nondistended abdomen , soft non tender No rashes or lesions. no focal neurologic deficits, no meningeal signs Course Vital Signs Vital signs: Vital Signs Temperature 39.2 C H 02/22/24 18:18 Pulse 114 H 02/22/24 18:18 Respiratory Rate 12 02/22/24 18:18 Blood Pressure 109/76 02/22/24 18:18 Pulse Oximetry 96 02/22/24 18:18 Temperature 38.8 C H 02/22/24 19:28 Temperature Source Tympanic 02/22/24 19:25 Pulse 100 H 02/22/24 19:28 Respiratory Rate 14 02/22/24 19:28 Respiratory Effort Normal 02/22/24 18:21 Blood Pressure 109/76 02/22/24 19:28 Blood Pressure Position Sitting 02/22/24 19:25 Pulse Oximetry 96 02/22/24 19:28 Oxygen Delivery Method Room Air 02/22/24 19:25 Oxygen Flow Rate 0 02/22/24 18:18 Pain Level 6 02/22/24 19:28 Lab/Test Results Lab/Test Results: Laboratory Tests Range/Units 02/22/24 18:15 COVID-19 Source NASOPHARYNX SARS-CoV-2 (PCR) (Negative) Negative Influenza Type A (PCR) (Negative) Negative Influenza Type B (PCR) (Negative) Negative RSV (PCR) (Negative) Negative Medical Decision Making Emergent evaluation of acute febrile illness. Initial differential includes viral illness, low suspicion for serious bacterial illness or sepsis. Patient is noted to be febrile. Her physical examination at this otherwise reassuring and she does not have any medical history that would put her in a high risk category. Lung sounds clear, low suspicion for pulmonary etiology. The viral testing was obtained and this is negative. She was given medication and fever started to come down. Recommend continued full doses of adult Motrin and Tylenol. Recommend to increase her oral intake. She was given Zofran in the emergency department with prescription to go home with. Return precautions advised. Recommend close follow-up with PCP for reevaluation if symptoms are ongoing. Quality:SDOH Health Related Social Needs: No Data to Display PFSH All Active Problems Acute viral syndrome (Acute) Fever (Acute) High frequency sensorineural hearing loss of left ear (Acute) Osteoporosis screening (Acute) Obesity (Chronic) Strain of thoracic back region (Acute) Dysfunctional uterine bleeding (Acute) Anxiety and depression (Chronic) Fatigue (Acute) History of anemia (Acute) Cough (Acute) Decreased hearing of both ears (Acute) Fracture of phalanx of right ring finger (Acute) Closed fracture of phalanx of right middle finger (Acute) Nexplanon in place (Acute) Placed 05/2018. History of delivery (Acute) SROM with at 30 weeks EGA. complicated by first trimester bleeding x2. without sequela. Hx of bariatric surgery (Acute 06/22/17) 2015 BMI 45kg/m2. 306lbs. 04/2017 BMI 26.6kg/m2. 173lbs. 06/2017 Low Vit D, pre-albumin. Nl TIBC, nl ferritin. Medical History Attention deficit disorder (ADD) in adult Hx of bariatric surgery 06/2017 Prealbumin, Vit D low iron saturation low. Nl TIBC, nl ferritin. Hx of obesity 2015 BMI 45 kg/m2. 302lbs 04/2017 BMI 26.6kg/m2. 173lbs. [place] [facility] [place] [facility] [place] gastric [place]. Family History Mother Diabetes Father Heart disease Social History Smoking/Tobacco Use Status: Never Smoking risk assessment performed?: Yes Alcohol Intake: current Alcohol Intake frequency: a few times a month Drug use: Never Substance use type: does not use Household members: significant other and other Details: Yousuf Robins Jr. 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
== END 2024-02-22 19:28 | disposition home or self-care (01) ==
PROVIDERS: Emergency Provider Emergency Medicine; PCP Nurse Practitioner Family
DX: R50.9 Fever, unspecified (principal); R52 Pain, unspecified; R11.10 Vomiting, unspecified; B34.9 Viral infection, unspecified
CPT/HCPCS: 87637; 99283

== ENCOUNTER 2024-03-18 14:00 | Emergency (ER) | payer BC, MEDICAID, SELFPAY ==
[2024-03-18 14:09] VITALS: BP 127/86; PULSE 83; RESP 18; TEMP 36.9; O2SAT 99
--- NOTE | 2024-03-18 14:15 | RT.EKG_ITS ---
APPROVED REPORT Exam: Resting ECG Reason for Exam: right flank pain sob Patient Location: E HR:54 bpm ECG Measurements Heart Rate 54 AXIS UT 163 P -10 QRSd 86 QRS 25 QT 399 T 10 QTc 380 Conclusion Sinus bradycardia...rate< 60 sinus alyssa, normal axis, normal intervals, non ischemic
--- NOTE | 2024-03-18 14:25 | ED.GENADUL_ITS ---
Discharge Plan Disposition Patient Disposition: Home Condition: Improving Discharge Details Chief Complaint: FlankPain Clinical Impression: Flank pain Primary Care Provider: Christiana Mosher ED Provider: Noah Chan Home Meds and New Rx's Prescriptions: No Action Nexplanon 68 mg implant 1 implant SBD ONCE Qty: 1 0RF Rx Instructions: as a single dose multivitamin Tablet 1 tab PO DAILY Discharge Instructions Instructions: Flank Pain Additional Instructions: Please continue with ice rest ibuprofen and/or acetaminophen as needed. Please follow-up with your primary care physician. Return to the emergency department for any worsening symptoms HPI General Date/Time Provider Initiated Documentation: 03/18/24 14:02 . HPI Narrative: 33-year-old female presents with right flank pain rating to right upper quadrant associate with shortness of breath, patient noticed discomfort while lifting boxes felt as if something popped, has had recent illness respiratory illness and had some right lower chest discomfort associated with that, no recent travel no recent injuries no recent hospitalization, patient does have Nexplanon implant, denies leg pain or swelling Related Data Home Medications ?Medication ?Instructions ?Recorded ?Confirmed etonogestrel 68 mg subdermal 1 implant subdermal ONCE #1 ea 05/12/18 03/18/24 implant (Nexplanon) multivitamin 1 tab PO DAILY 04/01/21 03/18/24 Previous Rx's ?Medication ?Instructions ?Recorded etonogestrel 68 mg subdermal 1 implant subdermal ONCE #1 ea 05/12/18 implant (Nexplanon) Allergies Allergy/AdvReac Type Severity Reaction Status Date / Time No Known Allergies Allergy Unverified 03/18/24 14:13 General Stated Complaint: FlankPain YUSUF: 3 Exam Narrative Exam Narrative: Appears uncomfortable Moist mucous membranes tolerating secretions Normal voice no stridor Lungs clear bilaterally no wheezes rales or rhonchi Abdomen soft nondistended some right upper quadrant tenderness without guarding, no CVA tenderness No midline spinal tenderness step-off crepitus or deformity Full strength and sensation upper and lower extremities, ambulatory without assistance no ataxia No rashes noted No peripheral edema Course Vital Signs Vital signs: Vital Signs Temperature 36.9 C 03/18/24 14:09 Pulse 83 03/18/24 14:09 Respiratory Rate 18 03/18/24 14:09 Blood Pressure 127/86 03/18/24 14:09 Pulse Oximetry 99 03/18/24 14:09 Temperature 36.9 C 03/18/24 14:09 Temperature Source Oral 03/18/24 14:09 Pulse 83 03/18/24 14:09 Respiratory Rate 18 03/18/24 14:09 Blood Pressure 127/86 03/18/24 14:09 Blood Pressure Position Sitting 03/18/24 14:09 Pulse Oximetry 99 03/18/24 14:09 Oxygen Delivery Method Room Air 03/18/24 14:09 Oxygen Flow Rate 0 03/18/24 14:09 Medical Decision Making 33-year-old female presents with right flank pain rating to right upper quadrant associate with shortness of breath, patient noticed discomfort while lifting boxes felt as if something popped, has had recent illness respiratory illness and had some right lower chest discomfort associated with that, no recent travel no recent injuries no recent hospitalization, patient does have Nexplanon implant, denies leg pain or swelling Alert oriented interactive hemodynamically stable nontachycardic nonhypoxic nontachypneic, no peripheral edema; high clinical suspicion for thoracic muscle strain versus abdominal hernia lower suspicion for acute cholecystitis or biliary colic given mechanism, however must consider PE given component of shortness of breath recent pulmonary infection and exogenous estrogen, low suspicion for ACS or aortic pathology, lower suspicion for pneumothorax. Will obtain CT chest abdomen pelvis/CTA chest, provide analgesia anti-inflammatory and muscle relaxant will obtain basic labs cardiac markers EKG, urine urinalysis. Low suspicion for nephrolithiasis or pyelonephritis given history and physical. 16: 05 resting actively no acute distress. Labs imaging unremarkable. Likely muscular strain of chest wall/flank/abdomen. No evidence of PE or cholecystitis. Quality:SDAL Health Related Social Needs: No Data to Display PFSH All Active Problems Flank pain (Acute) Acute viral syndrome (Acute) Fever (Acute) High frequency sensorineural hearing loss of left ear (Acute) Osteoporosis screening (Acute) Obesity (Chronic) Strain of thoracic back region (Acute) Dysfunctional uterine bleeding (Acute) Anxiety and depression (Chronic) Fatigue (Acute) History of anemia (Acute) Cough (Acute) Decreased hearing of both ears (Acute) Fracture of phalanx of right ring finger (Acute) Closed fracture of phalanx of right middle finger (Acute) Nexplanon in place (Acute) Placed 05/2018. History of delivery (Acute) SROM with at 30 weeks EGA. complicated by first trimester bleeding x2. without sequela. Hx of bariatric surgery (Acute 06/22/17) 2015 BMI 45kg/m2. 306lbs. 04/2017 BMI 26.6kg/m2. 173lbs. 06/2017 Low Vit D, pre-albumin. Nl TIBC, nl ferritin. Medical History Attention deficit disorder (ADD) in adult Hx of bariatric surgery 06/2017 Prealbumin, Vit D low iron saturation low. Nl TIBC, nl ferritin. Hx of obesity 2015 BMI 45 kg/m2. 302lbs 04/2017 BMI 26.6kg/m2. 173lbs. [place] [facility] [place] [facility] [place] gastric [place]. Family History Mother Diabetes Father Heart disease Social History Smoking/Tobacco Use Status: Never Smoking risk assessment performed?: Yes Alcohol Intake: current Alcohol Intake frequency: a few times a month Drug use: Never Substance use type: does not use Household members: significant other and other Details: Tory. 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
[2024-03-18 14:45] LABS: Abs Immature Grans 0.01 10^3/uL (0.0-0.06); Absolute Basophil Count 0.02 10^3/uL (0.0-0.2); Absolute Eosinophil Count 0.15 10^3/uL (0.0-0.7); Absolute Monocyte Count 0.48 10^3/uL (0.1-0.8); Absolute Neutrophil Count 3.72 10^3/uL (1.2-6.7); Basophils % 0.3 %; Eosinophils % 2.5 %; HCT 39.1 % (36.0-46.0); HGB 12.5 g/dL (11.2-15.7); Immature Grans % 0.2 %; Lymphocytes % 26.8 %; MCH 27.7 pg (27.0-33.0); MCV 87 fL (80-95); MPV 10.3 fL (8.0-11.0); Neutrophils % 62.2 %; Platelet Count 223 10^3/uL (130-400); RBC 4.51 10^6/uL (3.93-5.22); RDW 14.7 % (11.7-14.6); RDW-SD 46.2 fL; WBC 5.98 10^3/uL (4.4-10.8)
[2024-03-18 14:56] LABS: Bilirubin Negative (Negative); Blood Negative (Negative); Clarity Clear (Clear); Glucose Negative (Negative); Ketones Negative (Negative); Leukocyte Esterase Trace (Negative); Nitrite Negative (Negative)
[2024-03-18] MEDS: ACETAMINOPHEN 1,000 MG/100 ML BTL 400 MG IVPB (15:00)
[2024-03-18] MEDS: Cyclobenzaprine 10 MG TAB 5 MG PO (15:00)
[2024-03-18] MEDS: Lidocaine 5% Patch 1 PATCH TP (15:00)
[2024-03-18] MEDS: Ondansetron 4 MG/2 ML VIAL IVP (15:00)
[2024-03-18] MEDS: Ketorolac 15 MG/ML VIAL IVP (15:00)
[2024-03-18 15:04] LABS: INR 1.1 (0.9-1.1); PTT Activated 28.8 sec (23.6-32.8); Prothrombin Time 10.7 sec (9.1-11.1)
[2024-03-18 15:05] LABS: Bacteria Rare HPF (Negative); C & S Indicated? No; Casts Negative LPF (Negative); Crystals Negative HPF (Negative); Epithelial Cells Moderate HPF (Negative); Mucus Negative (Negative); RBC Negative HPF (0-2); WBC 0-2 HPF (0-5)
[2024-03-18 15:10] LABS: ALT 22 U/L (14-59); AST 18 U/L (15-37); Albumin 3.4 g/dL (3.4-5.0); Alkaline Phosphatase 24 U/L (46-116); Anion Gap 8.2 mmol/L (3-11); BUN 10 mg/dL (7-18); Bilirubin, Total 0.41 mg/dL (0.2-1.0); CO2 27.8 mmol/L (21.0-32.0); CREATININE 0.8 mg/dL (0.55-1.02); Chloride 106 mmol/L (98-107); Estimated GFR 99.71 (mL/min/1.73m2); Glucose 87 mg/dL (74-106); Potassium 3.8 mmol/L (3.5-5.1); Sodium 142 mmol/L (136-145); Total Protein 7.8 g/dL (6.4-8.2); Troponin I 42 ng/L (<or=51)
[2024-03-18 15:17] LABS: NT-proBNP 91 pg/mL (<300)
[2024-03-18] MEDS: Normal Saline - Diluent 50 ML VIAL IJ (15:18)
[2024-03-18] MEDS: Omnipaque 350 MG/ML 100 ML BTL IJ (15:19)
--- NOTE | 2024-03-18 15:34 | DI.CT_ITS ---
Exam(s) CT CHEST PE ABD PELVIS W EXAM: CT CHEST PE ABD PELVIS W CLINICAL HISTORY: right flank pain, sob, RUQ pain. TECHNIQUE: Imaging Protocol: Axial CT angiography was performed with multi-slice acquisition and mu lti-planar and/or 3D reconstructions. CONTRAST MATERIAL: Intravenous: Omnipaque 350 Contrast volume:100 ml COMPARISON: CR ABD FLAT UPRIGHT PA CHEST from 05/20/2010 FINDINGS: CHEST: Pulmonary Arteries: No evidence of filling defects to suggest pulmonary emboli. Tracheobronchial tree: No bronchiectasis or mucus plugging. Mediastinum and Yoon: No dominant adenopathy or fluid collection. Pulmonary parenchyma:. Lingular atelectasis. No consolidation or dominant measurable mass. Pleura: No effusion. No pneumothorax. Heart: The heart is notdilated. No coronary artery calcifications are seen. Aorta: Thoracic aorta non-dilated. Bones: Unremarkable for age. Tubes, Catheters, and Lines: None. Soft tissues: Unremarkable. ABDOMEN and PELVIS: Liver: Normal size. Normal density. No suspicious measurable mass. Portal, Superior Mesenteric, and Splenic Veins: Unremarkable. Gallbladder and Biliary Tract: Status post cholecystectomy. No biliary dilatation. Pancreas: Normal density, no abnormal calcifications or inflammatory process. Spleen: Normal. Adrenals: No masses seen. Kidneys: Normal size, contour and axis. No radiodense stones. No obstructive uropathy. No masses seen . Vasculature: Abdominal aorta non-dilated. Bowel: Suture material at fundus of stomach. No obstruction or bowel wall thickening. Appendix is un remarkable. Peritoneal Cavity: No ascites, collection or mesenteric inflammatory response. Lymph Nodes: Within normal limits. Soft Tissues: Surgical clips in the anterior abdominal wall. No hernias. Bladder: Symmetric distention, no gross wall thickening. Reproductive Organs: Unremarkable as visualized. Bones: Unremarkable for age.. IMPRESSION: 1. No evidence of pulmonary embolism or other acute abnormality in the chest. 2. No acute abdominal or pelvic process. RADIATION DOSE DELIVERED: Total DLP DATA REPOSITORY: All CT scans at this facility are submitted to the National Radiology Data Registry (NRDR) Dose Index Registry (DIR) with the [employer] (ACR). RADIATION OPTIMIZATION: All CT scans at this facility use at least one of these dose optimization te chniques: automated exposure control; mA and/or kV adjustment per patient size (includes targeted exa ms where dose is matched to clinical indication); or iterative reconstruction.
[2024-03-18 16:19] VITALS: BP 111/46; PULSE 78; RESP 12; O2SAT 100
== END 2024-03-18 16:20 | disposition home or self-care (01) ==
PROVIDERS: Emergency Provider Emergency Medicine; PCP Nurse Practitioner Family
DX: R10.11 Right upper quadrant pain (principal); R06.02 Shortness of breath; Z98.84 Bariatric surgery status
CPT/HCPCS: 36415; 71275; 74177; 80053; 93005; 96365; 96375; 99284; 81003; 81015; 83880; 84484; 85025; 85610; 85730; 93010; J0131; J1885; J2405; J3490

== ENCOUNTER 2025-02-08 13:20 | Emergency (ER) | payer OTHER, SELFPAY ==
[2025-02-08 13:21] VITALS: BP 116/75; PULSE 83; RESP 14; TEMP 36.7; O2SAT 98
[2025-02-08] MEDS: Ondansetron O.D.T. 4 MG TABEF PO (14:04)
[2025-02-08 14:30] LABS: Cannabinoids THC Positive (Negative); METHADONE URINE SCREEN Negative (Negative)
--- NOTE | 2025-02-08 15:32 | W.ED.GENAD ---
Discharge Plan Disposition Patient Disposition: Home Condition: Stable Discharge Details Clinical Impression: Exposure to toxic substance Primary Care Provider: Christiana Mosher ED Provider: Pippa Lemus Home Meds and New Rx's Prescriptions: New ondansetron 4 mg tablet,disintegrating 4 mg PO TID PRN3 Days Qty: 10 0RF Continued Nexplanon 68 mg implant 1 implant SBD ONCE Qty: 1 0RF Rx Instructions: as a single dose multivitamin Tablet 1 tab PO DAILY Discharge Instructions Additional Instructions: I will notify you if your toxicology screen is positive for any illicit substances, if you do not receive a call, your tox screen was negative I will attach a prescription for Zofran, a medication for nausea and vomiting if you need it Should you start having difficulty breathing or any new concerns arise, please present for reassessment Referrals: Christiana Mosher [Primary Care Provider, Medicine] HPI General Date/Time Provider Initiated Documentation: 02/08/25 13:25. HPI Narrative: This 34-year-old female presents with potential exposure to fentanyl. 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 Patient states she touched the door handle and the client's keys. She states she feels nauseous but she is quite anxious that she had fentanyl exposure from walking into this apartment. She otherwise states she feels fine. She denies any chest pain shortness of breath difficulty swallowing hallucinations. Potential exposure occurred at 1130 per patient. Denies any chance of . Related Data Home Medications ?Medication ?Instructions ?Recorded ?Confirmed etonogestrel 68 mg subdermal 1 implant subdermal ONCE #1 ea 05/12/18 02/08/25 implant (Nexplanon) multivitamin 1 tab PO DAILY 04/01/21 02/08/25 ondansetron 4 mg disintegrating 4 mg PO TID PRN 3 days #10 tabs 02/08/25 tablet Previous Rx's ?Medication ?Instructions ?Recorded etonogestrel 68 mg subdermal 1 implant subdermal ONCE #1 ea 05/12/18 implant (Nexplanon) ondansetron 4 mg disintegrating 4 mg PO TID PRN 3 days #10 tabs 02/08/25 tablet Allergies Allergy/AdvReac Type Severity Reaction Status Date / Time No Known Allergies Allergy Unverified 02/08/25 13:29 General Stated Complaint: Patient Exposure Risk YUSUF: 4 Exam Narrative Exam Narrative: Alert and oriented female no acute distress oropharynx patent maintaining secretions speaking complete sentences no respiratory distress no rashes or lesions no abdominal tenderness Course Vital Signs Vital signs: Vital Signs Temperature 36.7 C 02/08/25 13:21 Pulse 83 02/08/25 13:21 Respiratory Rate 14 02/08/25 13:21 Blood Pressure 116/75 02/08/25 13:21 Pulse Oximetry 98 02/08/25 13:21 Temperature 36.7 C 02/08/25 13:21 Pulse 83 02/08/25 13:21 Respiratory Rate 14 02/08/25 13:21 Blood Pressure 116/75 02/08/25 13:21 Blood Pressure Position Sitting 02/08/25 13:21 Pulse Oximetry 98 02/08/25 13:21 Oxygen Delivery Method Room Air 02/08/25 13:21 Oxygen Flow Rate 0 02/08/25 13:21 Lab/Test Results Lab/Test Results: Laboratory Tests Range/Units 02/08/25 14:05 Urine Opiates Screen (Negative) Negative Urine Methadone Screen (Negative) Negative Ur Barbiturates Screen (Negative) Negative Ur Tricyclics Screen (Negative) Negative Ur Amphetamines Screen (Negative) Negative U Benzodiazepines Scrn (Negative) Negative Urine Cocaine Screen (Negative) Negative Ur THC Screen (Negative) Positive A Medical Decision Making Alert and well-appearing 34-year-old female with potential exposure to fentanyl or illicit substance. Patient appears well she is nauseated but is unsure if it is from dehydration or potential exposure. I did order U tox then as a afterthought I did realize that her U tox does not contain fentanyl screening. I have ordered and a send out fentanyl screen which is pending at this time. I attempted to notify patient however her mailbox was full and I could not leave a message. I do not think this changes management in any way and she will continue supportive care at home. She will return should she have new or worsening complaints PFSH All Active Problems Exposure to toxic substance (Acute) High frequency sensorineural hearing loss of left ear (Acute) Osteoporosis screening (Acute) Obesity (Chronic) Strain of thoracic back region (Acute) Dysfunctional uterine bleeding (Acute) Anxiety and depression (Chronic) Fatigue (Acute) History of anemia (Acute) Cough (Acute) Decreased hearing of both ears (Acute) Fracture of phalanx of right ring finger (Acute) Closed fracture of phalanx of right middle finger (Acute) Nexplanon in place (Acute) Placed 05/2018. History of delivery (Acute) SROM with at 30 weeks EGA. complicated by first trimester bleeding x2. without sequela. Hx of bariatric surgery (Acute 06/22/17) 2015 BMI 45kg/m2. 306lbs. 04/2017 BMI 26.6kg/m2. 173lbs. 06/2017 Low Vit D, pre-albumin. Nl TIBC, nl ferritin. Medical History Attention deficit disorder (ADD) in adult Hx of bariatric surgery 06/2017 Prealbumin, Vit D low iron saturation low. Nl TIBC, nl ferritin. Hx of obesity 2015 BMI 45 kg/m2. 302lbs 04/2017 BMI 26.6kg/m2. 173lbs. [place] [facility] [place] [facility] [place] Lin [place] gastric bypass. Family History Mother Diabetes Father Heart disease Social History Smoking/Tobacco Use Status: Never Smoking risk assessment performed?: Yes Alcohol Intake: current Alcohol Intake frequency: a few times a month Drug use: Never Substance use type: marijuana Household members: significant other and other Details: Tory. 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
[2025-02-08 15:40] LABS: Lab Add On Test DONE
[2025-02-09 11:46] LABS: Fentanyl Scr w/Rfx Confirm Negative ng/mL (<1)
== END 2025-02-08 14:27 | disposition home or self-care (01) ==
PROVIDERS: Emergency Provider Physician Assistant; PCP Nurse Practitioner Family
DX: Z77.29 Contact with and (suspected) exposure to other hazardous substances (principal)
CPT/HCPCS: 99283 ×2; 80307

== ENCOUNTER 2025-03-06 07:49 | Emergency (ER) | payer BC, SELFPAY ==
[2025-03-06 07:55] VITALS: BP 157/55; PULSE 83; RESP 12; TEMP 36; O2SAT 100
[2025-03-06] MEDS: Benzocaine 20% Gel 30 GM JAR MM (08:35)
--- NOTE | 2025-03-06 08:35 | ED.GENADUL_ITS ---
Discharge Plan Disposition Patient Disposition: Home Condition: Stable Discharge Details Clinical Impression: Dental abscess Primary Care Provider: Christiana Mosher ED Provider: Jersey Marc Home Meds and New Rx's Prescriptions: Continued Nexplanon 68 mg implant 1 implant SBD ONCE Qty: 1 0RF Rx Instructions: as a single dose multivitamin Tablet 1 tab PO DAILY penicillin V potassium 500 mg tablet 500 mg PO QID Patient Comments: TAKE ONE TABLET BY MOUTH FOUR TIMES A DAY FOR 10 DAYS Discharge Instructions Instructions: Tooth Abscess ED Additional Instructions: Please follow-up with your dentist. Call today to arrange timely follow-up. Continue to take antibiotic as prescribed. Be sure to complete the full course. Please take tylenol (acetaminophen) 650 mg every 6 hours as needed for pain. Be sure to avoid any other medications that containe tylenol (acetaminophen). Please take ibuprofen 600 mg by mouth every 6-8 hours as needed for pain for the next few days. Return to the emergency department immediately for any worsening or new concerning symptoms. Stand Alone Forms: Work Release HPI General Date/Time Provider Initiated Documentation: 03/06/25 08:11 . Limitations to Documentation: no limitations . Information obtained by: patient . HPI Narrative: HISTORY OF PRESENT ILLNESS This is a 34-year-old female presenting with a dental infection. The patient reports that she developed dental and facial pain last Thursday. She went to the dentist on 03/03/2025 and was started on penicillin V K. She has been taking this over the past couple of days, but her condition has not improved. She notes swelling to her right face. She has never had a tooth infection spread in this manner before and expresses concern about the situation. She began her antibiotic treatment on 03/03/2025 at 4:00 PM, taking 4 doses daily. The pain is intermittent, with periods of relief followed by episodes of discomfort. The pain has not worsened since the onset of symptoms. She has been alternating between ibuprofen and Tylenol for pain management. Initially, she found relief with ibuprofen, but it does not seem to alleviate the swelling. She has a follow-up appointment with her dentist scheduled in a few weeks. She used to ride horses and has sustained damage to her teeth over the years, but there have been no recent injuries. She identifies a specific area in her gum line that feels particularly swollen. She has no known allergies and has not had any adverse reactions to lidocaine or other numbing agents. Related Data Home Medications ?Medication ?Instructions ?Recorded ?Confirmed etonogestrel 68 mg subdermal 1 implant subdermal ONCE #1 ea 05/12/18 03/06/25 implant (Nexplanon) multivitamin 1 tab PO DAILY 04/01/21/03/02 penicillin V potassium 500 mg 500 mg PO QID 03/06/25 0 03/06/25 tablet Previous Rx's ?Medication ?Instructions ?Recorded etonogestrel 68 mg subdermal 1 implant subdermal ONCE #1 ea 05/12/18 implant (Nexplanon) Allergies Allergy/AdvReac Type Severity Reaction Status Date / Time No Known Allergies Allergy Verified 03/06/25 08:00 General Stated Complaint: DentalOral YUSUF: 4 Review of Systems ENT Ears, Nose, Mouth, and Throat: Reports as per HPI Exam Const General: cooperative Nutritional Appearance: average body habitus Orientation: alert HENMT Face and sinus: no erythema, no fluctuance and other (Mild right maxillary facial swelling) Mouth: other (Fluctuant dental abscess tooth #7) Throat: posterior oropharynx normal Eyes Periorbital: periorbital findings normal EOM: EOM intact bilaterally Neck Neck: normal visual inspection and no lymphadenopathy Course Vital Signs Vital signs: Vital Signs Temperature 36.0 C L 03/06/25 07:55 Pulse 83 03/06/25 07:55 Respiratory Rate 12 03/06/25 07:55 Blood Pressure 157/55 H 03/06/25 07:55 Pulse Oximetry 100 03/06/25 07:55 Temperature 36.0 C L 03/06/25 07:55 Temperature Source Tympanic 03/06/25 07:55 Pulse 83 03/06/25 07:55 Respiratory Rate 12 03/06/25 07:55 Blood Pressure 157/55 H 03/06/25 07:55 Blood Pressure Position Sitting 03/06/25 07:55 Pulse Oximetry 100 03/06/25 07:55 Oxygen Delivery Method Room Air 03/06/25 07:55 Oxygen Flow Rate 0 03/06/25 07:55 Procedure Abscess Drainage Date of Procedure: 03/06/25 Time of Procedure: 09:20 Provider that performed the procedure: Jersey Hamm Time Out Performed: Yes Patient Consented: Verbally Location of Exam: Oral Indication: Abscess. Sterility: Non Sterile. Procedure Prep: Hand hygiene, Surgical Mask and 11 blade. Technique used incised with blade. Amount of fluid expressed(mL): 2. Outcome: Sucessful Ultrasound: Not used Complications: None Medical Decision Making ASSESSMENT AND PLAN Initial Assessment: 34-year-old female with dental infection, swelling to right face, taking penicillin V K without improvement. Periapical dental abscess present on exam. ED Course: - Applied mucosal benzocaine to the abscess area - Incision and drainage performed and successful without complication Clinical Impression: - Dental abscess Disposition: - Follow-Up: Follow up with dentist in a couple of weeks Patient Education: Discussed the need for drainage of the abscess and continuation of antibiotics. This document was written with the assistance of BREA Shipley. The patient consented to its use. PFSH All Active Problems Dental abscess (Acute) Exposure to toxic substance (Acute) High frequency sensorineural hearing loss of left ear (Acute) Osteoporosis screening (Acute) Obesity (Chronic) Strain of thoracic back region (Acute) Dysfunctional uterine bleeding (Acute) Anxiety and depression (Chronic) Fatigue (Acute) History of anemia (Acute) Cough (Acute) Decreased hearing of both ears (Acute) Fracture of phalanx of right ring finger (Acute) Closed fracture of phalanx of right middle finger (Acute) Nexplanon in place (Acute) Placed 05/2018. History of delivery (Acute) SROM with at 30 weeks EGA. complicated by first trimester bleeding x2. without sequela. Hx of bariatric surgery (Acute 06/22/17) 2015 BMI 45kg/m2. 306lbs. 04/2017 BMI 26.6kg/m2. 173lbs. 06/2017 Low Vit D, pre-albumin. Nl TIBC, nl ferritin. Medical History Attention deficit disorder (ADD) in adult Hx of bariatric surgery 06/2017 Prealbumin, Vit D low iron saturation low. Nl TIBC, nl ferritin. Hx of obesity 2015 BMI 45 kg/m2. 302lbs 04/2017 BMI 26.6kg/m2. 173lbs. [place] [facility] [place] [facility] [place] Lin [place] gastric bypass. Family History Mother Diabetes Father Heart disease Social History Smoking/Tobacco Use Status: Never Smoking risk assessment performed?: Yes Alcohol Intake: current Alcohol Intake frequency: a few times a month Drug use: Never Substance use type: marijuana Household members: significant other and other Details: Tory. 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
[2025-03-06 09:26] VITALS: BP 131/89; PULSE 62; RESP 16; TEMP 36.4; O2SAT 99
== END 2025-03-06 10:02 | disposition home or self-care (01) ==
PROVIDERS: Emergency Provider Student in an Organized Health Care Education/Training Program; PCP Nurse Practitioner Family
DX: R68.84 Jaw pain (principal); K04.7 Periapical abscess without sinus
CPT/HCPCS: 41800